=== PATIENT | female | born 1960 | race Caucasian/White ===

== ENCOUNTER 2020-03-23 08:50 | Day surgery (SDC) | payer MEDICAID ==
[2020-03-23] VITALS (14 sets, daily range): BP systolic 101–147; BP diastolic 60–83
[~2020-03-23] VITALS: Ht 154.9 cm; Wt 62.8 kg
[2020-03-23] MEDS ORDERED: albumin 25% 100mL bottle x 1 IV PRN (09:20)
[2020-03-23] MEDS ORDERED: fentaNYL/PF 50MCG/1 ML 2ML syringe ONE (10:15)
[2020-03-23] MEDS ORDERED: midazolam 2 mg/2 ml injection ONE (10:15)
[2020-03-23 10:31] LABS: BASOPHILS # (AUTO) 0.1 X10'3 (0-0.2); BASOPHILS % (AUTO) 0.8 % (0-1); EOSINOPHILS # (AUTO) 0.3 X10'3 (0-0.9); EOSINOPHILS % (AUTO) 3.2 % (0-6); HEMOGLOBIN 13.4 g/dl (12.0-16.0); LYMPHOCYTES # (AUTO) 2.1 X10'3 (1.1-4.8); LYMPHOCYTES % (AUTO) 23.3 % (21-51); MEAN CORPUSCULAR HGB CONC 34.4 g/dL (33.0-36.5); MEAN CORPUSCULAR VOLUME 95.9 FL (78-98); MEAN PLATELET VOLUME 8.6 FL (7.4-10.4); MONOCYTES # (AUTO) 0.9 X10'3 (0-0.9); MONOCYTES % (AUTO) 9.9 % (2-12); NEUTROPHILS # (AUTO) 5.6 X10'3 (1.8-7.7); NEUTROPHILS % (AUTO) 62.8 % (42-75); PLATELET COUNT 268 X10'3 (140-440); RED BLOOD COUNT 4.07 X10'6 (4.20-5.60); RED CELL DISTRIBUTION WIDTH 13.2 % (11.5-14.5); WHITE BLOOD COUNT 8.9 X10'3 (4.5-11.0)
[2020-03-23] MEDS ORDERED: gelatin sponge, absorbable (Gelfoam 12-7MM) sponge TP ONE (11:09)
[2020-03-23] MEDS ORDERED: HYDROcodone/acetaminophen 5mg/325mg tablet PO PRN (11:20)
[2020-03-23] MEDS ORDERED: LEVO25TA2 PO (14:26)
[2020-03-23] MEDS ORDERED: IBUP-1986 PO (14:27)
[2020-03-23] MEDS ORDERED: CYCL-1 PO (14:28)
[2020-03-23] MEDS ORDERED: GABA300C PO (14:29)
== END 2020-03-23 14:45 | disposition home or self-care (01) ==
LOC: SSTAY O 08:50
PROVIDERS: ATTEND Radiology Vascular & Interventional Radiology
DX: R91.8 Other nonspecific abnormal finding of lung field (principal); C34.11 Malignant neoplasm of upper lobe, right bronchus or lung; Z20.828 Contact with and (suspected) exposure to other viral communicable diseases
CPT/HCPCS: 32405; 36415; 71045; 77012; 85025; 87635; 99152; 99153; J2250; J3010

== ENCOUNTER 2020-05-12 05:21 | Inpatient (IN) | payer MEDICAID ==
[2020-05-10 14:50] LABS: CLARITY,URINE CLOUDY (Clear); COLOR,URINE YELLOW (Yellow); GLUCOSE, URINE NEGATIVE (Neg); KETONES,URINE TRACE mg/dl (Neg); LEUKOCYTE ESTERASE ,URINE SMALL (Neg); NITRITES, URINE POSITIVE (Neg); OCCULT BLOOD,URINE NEGATIVE (Neg); PROTEIN,URINE 30 mg/dl (Neg)
[2020-05-10 14:51] LABS: UA COLLECTION TYPE CLN CATCH MIDSTREAM
[2020-05-10 14:59] LABS: SQUAMOUS EPITHELIAL CELL,UR MANY /LPF (FEW)
[2020-05-10 15:00] LABS: BACTERIA,URINE 3+ /HPF (Neg); RBC,URINE 0-2 /HPF (0-2)
[2020-05-10 15:00] LABS: BASOPHILS # (AUTO) 0.1 X10'3 (0-0.2); EOSINOPHILS # (AUTO) 0.2 X10'3 (0-0.9); EOSINOPHILS % (AUTO) 3.6 % (0-6); LYMPHOCYTES # (AUTO) 1.8 X10'3 (1.1-4.8); LYMPHOCYTES % (AUTO) 29.9 % (21-51); MEAN CORPUSCULAR HEMOGLOBIN 33.1 PG (27.0-31.0); MEAN CORPUSCULAR HGB CONC 34.4 g/dL (33.0-36.5); MEAN CORPUSCULAR VOLUME 96.1 FL (78-98); MEAN PLATELET VOLUME 8.9 FL (7.4-10.4); MONOCYTES # (AUTO) 0.5 X10'3 (0-0.9); MONOCYTES % (AUTO) 7.8 % (2-12); NEUTROPHILS # (AUTO) 3.5 X10'3 (1.8-7.7); NEUTROPHILS % (AUTO) 57.7 % (42-75); PRE OP HEMATOCRIT 43.2 % (35.0-45.0); PRE OP HEMOGLOBIN 14.9 g/dL (12.0-16.0); PRE OP PLATELET COUNT 234 X10'3 (140-440); RED CELL DISTRIBUTION WIDTH 14.5 % (11.5-14.5)
[2020-05-10 15:09] LABS: PRE OP PROTIME 10.1 SECONDS (9.0-12.0)
[2020-05-10 15:12] LABS: ALKALINE PHOSPHATASE 67 IU/L (46-116); BLOOD UREA NITROGEN 12 MG/DL (7-18); BUN/CREATININE RATIO 22.2 (6.6-38.0); CALCIUM 9.5 MG/DL (8.5-10.1); CHLORIDE 107 MMOL/L (99-107); CREATININE 0.54 MG/DL (0.40-0.90); PRE OP ALT 23 U/L (30-65); PRE OP ANION GAP 10 (8-16); PRE OP AST 21 U/L (10-37); PRE OP BILIRUB, TOTAL 0.3 MG/DL (0.0-1.0); PRE OP GLUCOSE 114 MG/DL (70-104); PRE OP POTASSIUM 4.1 MMOL/L (3.4-5.1); PRE OP SODIUM 145 MMOL/L (135-145); TOTAL CARBON DIOXIDE 28.3 MMOL/L (24-32); TOTAL PROTEIN 7.9 G/DL (6.4-8.2); eGFR > 90 ML/MIN
[2020-05-12] VITALS (18 sets, daily range): BP systolic 116–186; BP diastolic 55–100
[~2020-05-12] VITALS: Ht 160 cm; Wt 64.3 kg
[~2020-05-12 05:21] MED LIST: IBUP-1986 PO; ringers solution, lacted 1,000 ML IV SCH
[2020-05-12] MEDS ORDERED: ceFAZolin 2gm in dextrose, iso 50 ML IV ONE (05:30)
[2020-05-12] MEDS ORDERED: famotidine 20mg tablet PO ONE (05:30)
[2020-05-12] MEDS ORDERED: BUPIVAcaine/PF 2.5 mg/ml (0.25%) 30ml vial ONE (06:38)
[2020-05-12] MEDS ORDERED: acetaminophen 325mg tablet PO ONE (07:10)
[2020-05-12] MEDS ORDERED: glycopyrrolate 0.2mg/ml inj ONE (12:12)
[2020-05-12] MEDS ORDERED: acetaminophen 1000 MG/100ml vial IV ONE (12:12)
[2020-05-12] MEDS ORDERED: dexamethasone sod phosphate 10mg/ml inj ONE (12:12)
[2020-05-12] MEDS ORDERED: neostigmine methylsulfate 1 MG/ML 10ml vial ONE (12:12)
[2020-05-12] MEDS ORDERED: sevoflurane 250ml liquid IH ONE (12:12)
[2020-05-12] MEDS ORDERED: midazolam 2 mg/2 ml injection ONE (12:17)
[2020-05-12] MEDS ORDERED: fentaNYL /PF 50mcg/ml 5ml ampule ONE ×2 (12:18→13:23)
[2020-05-12] MEDS ORDERED: propofol inj 20 ML IV ONE (12:25)
[2020-05-12] MEDS ORDERED: LIDOcaine 1%/PF 5ML 10 MG/ML VIAL ONE (12:25)
[2020-05-12] MEDS ORDERED: rocuronium 10mg/ml inj IV ONE (13:15)
[2020-05-12] MEDS ORDERED: ondansetron/PF 4mg/2ml inj ONE (13:17)
[2020-05-12] MEDS ORDERED: BUPIVACAINE liposomal/PF 13.3 MG/ML vial IM ONE (13:19)
[2020-05-12] MEDS ORDERED: labetalol 20mg/4ml (5mg/ml) syringe IV ONE (13:31)
[2020-05-12] MEDS ORDERED: morphine 4 MG/ML inj SYRINge IV PRN ×3 (16:00→16:55)
[2020-05-12] MEDS ORDERED: proCHLORperazine 10 MG/2 ml inj IV PRN (16:00)
[2020-05-12] MEDS ORDERED: ringers solution, lacted 1,000 ML IV SCH (16:00)
[2020-05-12] MEDS ORDERED: morphine 2 MG/ML inj. syringe IV PRN (16:00)
[2020-05-12] MEDS ORDERED: ondansetron/PF 4mg/2ml inj IV PRN ×2 (16:00→16:55)
[2020-05-12] MEDS ORDERED: meperidine/PF 25mg/ml syringe IV PRN ×3 (16:00)
[2020-05-12] MEDS ORDERED: pancuronium br 1mg/ml inj IV ONE (16:14)
--- NOTE | 2020-05-12 16:35 | NUR ---
Received from OR via mental health bed, accompanied by Anesthesiologist Lito and report given by Anesthesiolgist. PT DROWSY, PIV LEFT WRIST 20G, R NECK 3 LUMEN CVL, RIGHT CHEST TUBE-LG BORE TO SXN AIR LEAK NOTED WITH BLOOD IN TUBING-5CC IN A[facility], DRSG TO RIGHT CHEST-CDI, F/C IN PLACE, SCDS ON, VSS, DENIES PAIN. Addendum: 05/12/20 at 1718 by Yusra Pugh RN Amended: Links added.
[2020-05-12] MEDS ORDERED: naloxone 0.4 mg/ml inj IV PRN (16:55)
[2020-05-12] MEDS ORDERED: metoclopramide 5 mg/ml inj IV PRN (16:55)
[2020-05-12] MEDS ORDERED: HYDROcodone/acetaminophen 10/325mg tab PO PRN (16:55)
[2020-05-12] MEDS ORDERED: albuterol 2.5 MG/3 ML nebule NEB PRN (16:55)
[2020-05-12] MEDS ORDERED: CADD PCA waste documentation MC PRN (16:55)
[2020-05-12 17:15] LABS: ABG HCO3 21.6 mmol/L (22.0-26.0); ABG OXYGEN SATURATION 99.1 % (94-97); ABG PCO2 (T) 44.9 mmHg (32.0-45.0); ABG PO2 (T) 182.3 mmHg (75.0-100.0); FCOHb 1.5 % (0.0-3.9); FLOW 10 L/min; FMetHb 0.4 % (0.0-1.5); FO2Hb 97.2 % (94-97); PATIENT TEMPERATURE 36.5; TOTAL HEMOGLOBIN 13.5 G/dl (12.0-16.0)
--- NOTE | 2020-05-12 17:35 | NUR ---
ALL CRITERIA FOR TRANSFER TO THE ACCE UNIT HAS BEEN ACHIEVED. REPORT GIVEN TO GINGER FRANCISCO WHO IS AT BEDSIDE AND ALL QUESTIONS ANSWERED, VSS. BED LOW 2 RAILS UP, CALL LIGHT PRESENT AND PATIENT HOOKED UP TO ALL LINES. PATIENTS RN PRESENT TO ACCEPT CARE, PT DENIES PAIN, CT TO SXN-WITH AIR LEAK STILL PRESENT, 1 BAG BELONGINGS TRANSFERRED WITH PT, F/C DRAINING CLEAR YELLOW. Addendum: 05/12/20 at 1805 by Yusra Pugh RN Amended: Links added.
--- NOTE | 2020-05-12 17:50 | NUR ---
Reort received from [place] public health inspector. Pt brought up to room she was alert but still sleepy from her surgery. VSS. No S/S of distress, she denied pain. Art line was Zeroed. CVL to R neck Dressing was loose so re-enforced with tegaderm. R side dressing and tube site were CDI and Chest tube was patent with small air leak. Report given to Sapna FRANCISCO Noc shift.
--- NOTE | 2020-05-12 18:30 | NUR ---
Patient in room MED 313. I have just received report from Lovely FRANCISCO and had the opportunity to ask questions and assume patient care.
[2020-05-12] MEDS: gabapentin 300mg capsule PO SCH (20:23)
[2020-05-12] MEDS: HYDROmorphone 1 mg/ml syringe IV PRN (22:21)
[2020-05-12] MEDS: ceFAZolin/D5W- 1GM premix 50 ML IV SCH (23:58)
[2020-05-13] VITALS (8 sets, daily range): BP systolic 86–110; BP diastolic 45–69
[2020-05-13] MEDS: HYDROmorphone 1 mg/ml syringe IV PRN ×5 (02:24→23:56)
[2020-05-13] MEDS: potassium Cl 20mEq in D5-NS 1,000 ML IV SCH ×3 (05:25→19:18)
--- NOTE | 2020-05-13 06:33 | NUR ---
Problems reprioritized. Patient report given, questions answered & plan of care reviewed with CAESAR FRANCISCO.
[2020-05-13 06:48] LABS: BASOPHILS % (AUTO) 0.2 % (0-1); EOSINOPHILS % (AUTO) 0.2 % (0-6); HEMATOCRIT 35.3 % (35.0-45.0); LYMPHOCYTES # (AUTO) 1.5 X10'3 (1.1-4.8); LYMPHOCYTES % (AUTO) 14.9 % (21-51); MEAN CORPUSCULAR HEMOGLOBIN 32.9 PG (27.0-31.0); MEAN CORPUSCULAR HGB CONC 34.1 g/dL (33.0-36.5); MEAN CORPUSCULAR VOLUME 96.5 FL (78-98); MEAN PLATELET VOLUME 9.1 FL (7.4-10.4); MONOCYTES # (AUTO) 0.8 X10'3 (0-0.9); MONOCYTES % (AUTO) 7.9 % (2-12); NEUTROPHILS # (AUTO) 7.7 X10'3 (1.8-7.7); NEUTROPHILS % (AUTO) 76.8 % (42-75); PLATELET COUNT 185 X10'3 (140-440); RED BLOOD COUNT 3.65 X10'6 (4.20-5.60); RED CELL DISTRIBUTION WIDTH 14.2 % (11.5-14.5)
--- NOTE | 2020-05-13 06:56 | NUR ---
Patient in room MED 313. I have received report from MARYAM Alejo and had the opportunity to ask questions and assume patient care.
[2020-05-13 07:47] LABS: ALANINE AMINOTRANSFERASE 20 U/L (12-78); ALKALINE PHOSPHATASE 50 IU/L (46-116); ANION GAP 7 (8-16); ASPARTATE AMINO TRANSFERASE 24 U/L (10-37); BILIRUBIN,TOTAL 0.9 MG/DL (0.1-1.0); BLOOD UREA NITROGEN 11 MG/DL (7-18); BUN/CREATININE RATIO 21.2 (6.6-38.0); CALCIUM 8.1 MG/DL (8.5-10.1); CHLORIDE 104 MMOL/L (99-107); CREATININE 0.52 MG/DL (0.40-0.90); GLUCOSE 112 MG/DL (70-104); MAGNESIUM 1.6 MG/DL (1.5-2.4); POTASSIUM 3.6 MMOL/L (3.5-5.1); SODIUM 138 MMOL/L (135-145); TOTAL PROTEIN 6.1 G/DL (6.4-8.2); eGFR > 90 ML/MIN
[2020-05-13] MEDS: gabapentin 300mg capsule PO SCH ×2 (07:49→19:17)
[2020-05-13] MEDS: ceFAZolin/D5W- 1GM premix 50 ML IV SCH (07:50)
--- NOTE | 2020-05-13 18:49 | NUR ---
central line d/c per MD orders
--- NOTE | 2020-05-13 18:51 | NUR ---
Problems reprioritized. Patient report given, questions answered & plan of care reviewed with MARYAM William.
--- NOTE | 2020-05-13 18:55 | NUR ---
Patient in room MED 313. I have received report from Claudia, and had the opportunity to ask questions and assume patient care.
[2020-05-14] MEDS: HYDROcodone/acetaminophen 10/325mg tab PO PRN (03:32)
[2020-05-14 03:45] VITALS: BP 107/50
--- NOTE | 2020-05-14 06:44 | NUR ---
Problems reprioritized. Patient report given, questions answered & plan of care reviewed with Vadim.
[2020-05-14 07:00] VITALS: BP 83/59
[2020-05-14] MEDS: ketorolac trometh. 30mg/ml inj. IV PRN ×3 (10:17→22:26)
[2020-05-14] MEDS: HYDROmorphone 1 mg/ml syringe IV PRN ×3 (10:18→20:42)
[2020-05-14 11:00] VITALS: BP 89/68
[2020-05-14] MEDS: potassium Cl 20mEq in D5-NS 1,000 ML IV SCH (12:01)
[2020-05-14] MEDS ORDERED: gabapentin 300mg capsule PO ONE (12:15)
[2020-05-14] MEDS: gabapentin 300mg capsule PO SCH (13:41)
[2020-05-14 15:00] VITALS: BP 109/54
[2020-05-14 19:00] VITALS: BP 117/55
[2020-05-14] MEDS ORDERED: mag hydrox/Alum hydrox/simeth 30ml oral suspension PO ONE (22:20)
[2020-05-15] MEDS: HYDROcodone/acetaminophen 10/325mg tab PO PRN ×4 (01:51→19:30)
[2020-05-15 06:00] VITALS: BP 132/74
--- NOTE | 2020-05-15 06:31 | NUR ---
Patient in room MED 313. I have received report from grabiel azar and had the opportunity to ask questions and assume patient care.
--- NOTE | 2020-05-15 06:39 | NUR ---
Problems reprioritized. Patient report given, questions answered & plan of care reviewed with RACHELE. Addendum: 05/15/20 at 0640 by Feliberto Metz RN Amended: Links added.
[2020-05-15 08:32] LABS: BASOPHILS % (AUTO) 0.4 % (0-1); EOSINOPHILS # (AUTO) 0.3 X10'3 (0-0.9); EOSINOPHILS % (AUTO) 4.3 % (0-6); HEMATOCRIT 34.2 % (35.0-45.0); HEMOGLOBIN 11.7 g/dl (12.0-16.0); LYMPHOCYTES # (AUTO) 1.6 X10'3 (1.1-4.8); LYMPHOCYTES % (AUTO) 24.2 % (21-51); MEAN CORPUSCULAR HEMOGLOBIN 33.5 PG (27.0-31.0); MEAN CORPUSCULAR HGB CONC 34.2 g/dL (33.0-36.5); MEAN CORPUSCULAR VOLUME 97.8 FL (78-98); MEAN PLATELET VOLUME 9.4 FL (7.4-10.4); MONOCYTES # (AUTO) 0.6 X10'3 (0-0.9); MONOCYTES % (AUTO) 9.1 % (2-12); NEUTROPHILS # (AUTO) 4.2 X10'3 (1.8-7.7); PLATELET COUNT 165 X10'3 (140-440); RED CELL DISTRIBUTION WIDTH 13.8 % (11.5-14.5); WHITE BLOOD COUNT 6.7 X10'3 (4.5-11.0)
[2020-05-15 08:48] LABS: ALANINE AMINOTRANSFERASE 16 U/L (12-78); ALBUMIN 2.6 G/DL (3.4-5.0); ALBUMIN/GLOBULIN RATIO 0.8 (1.1-1.5); ALKALINE PHOSPHATASE 47 IU/L (46-116); ANION GAP 5 (8-16); ASPARTATE AMINO TRANSFERASE 21 U/L (10-37); BILIRUBIN,TOTAL 0.5 MG/DL (0.1-1.0); BLOOD UREA NITROGEN 10 MG/DL (7-18); BUN/CREATININE RATIO 20.4 (6.6-38.0); CALCIUM 8.7 MG/DL (8.5-10.1); CHLORIDE 106 MMOL/L (99-107); CREATININE 0.49 MG/DL (0.40-0.90); GLUCOSE 108 MG/DL (70-104); POTASSIUM 4.1 MMOL/L (3.5-5.1); SODIUM 138 MMOL/L (135-145); TOTAL CARBON DIOXIDE 27.4 MMOL/L (24-32); eGFR > 90 ML/MIN
[2020-05-15] MEDS: ketorolac trometh. 30mg/ml inj. IV PRN ×2 (10:28→22:02)
[2020-05-15 11:00] VITALS: BP 114/53
[2020-05-15 15:00] VITALS: BP 124/55
--- NOTE | 2020-05-15 17:00 | NUR ---
pt aware small pneumothorax per CXR ,pt up out of bed ,removing moniters and sao2 probe, refusing IS, reconnected to moniters, pt aware need to call with any SOB, cont to moniter closely, orders in to repeat CXR in am
[2020-05-15 18:00] VITALS: BP 137/67
--- NOTE | 2020-05-15 18:40 | NUR ---
Problems reprioritized. Patient report given, questions answered & plan of care reviewed with MARYAM FUENTES.
--- NOTE | 2020-05-15 18:44 | NUR ---
Patient in room MED 313. I have received report from Génesis FRANCISCO and had the opportunity to ask questions and assume patient care.
[2020-05-15 22:00] VITALS: BP 117/60
[2020-05-16] MEDS: HYDROcodone/acetaminophen 10/325mg tab PO PRN ×4 (01:04→19:44)
[2020-05-16 02:00] VITALS: BP 131/65
[2020-05-16] MEDS: ketorolac trometh. 30mg/ml inj. IV PRN (03:46)
[2020-05-16 06:00] VITALS: BP 147/72
[2020-05-16 06:02] LABS: BASOPHILS % (AUTO) 0.7 % (0-1); EOSINOPHILS # (AUTO) 0.3 X10'3 (0-0.9); EOSINOPHILS % (AUTO) 5.4 % (0-6); HEMATOCRIT 34.1 % (35.0-45.0); HEMOGLOBIN 11.7 g/dl (12.0-16.0); LYMPHOCYTES # (AUTO) 1.7 X10'3 (1.1-4.8); LYMPHOCYTES % (AUTO) 30.4 % (21-51); MEAN CORPUSCULAR HEMOGLOBIN 33.9 PG (27.0-31.0); MEAN CORPUSCULAR HGB CONC 34.3 g/dL (33.0-36.5); MEAN CORPUSCULAR VOLUME 98.8 FL (78-98); MEAN PLATELET VOLUME 9.1 FL (7.4-10.4); MONOCYTES # (AUTO) 0.6 X10'3 (0-0.9); MONOCYTES % (AUTO) 11.5 % (2-12); NEUTROPHILS # (AUTO) 2.8 X10'3 (1.8-7.7); PLATELET COUNT 170 X10'3 (140-440); RED BLOOD COUNT 3.45 X10'6 (4.20-5.60); RED CELL DISTRIBUTION WIDTH 13.8 % (11.5-14.5); WHITE BLOOD COUNT 5.4 X10'3 (4.5-11.0)
[2020-05-16 06:14] LABS: ALANINE AMINOTRANSFERASE 20 U/L (12-78); ALBUMIN 2.6 G/DL (3.4-5.0); ALBUMIN/GLOBULIN RATIO 0.7 (1.1-1.5); ALKALINE PHOSPHATASE 45 IU/L (46-116); ANION GAP 4 (8-16); ASPARTATE AMINO TRANSFERASE 18 U/L (10-37); BILIRUBIN,TOTAL 0.4 MG/DL (0.1-1.0); BLOOD UREA NITROGEN 12 MG/DL (7-18); BUN/CREATININE RATIO 19.7 (6.6-38.0); CALCIUM 8.7 MG/DL (8.5-10.1); CHLORIDE 107 MMOL/L (99-107); CREATININE 0.61 MG/DL (0.40-0.90); GLUCOSE 104 MG/DL (70-104); MAGNESIUM 1.9 MG/DL (1.5-2.4); POTASSIUM 4.4 MMOL/L (3.5-5.1); SODIUM 139 MMOL/L (135-145); TOTAL CARBON DIOXIDE 28.1 MMOL/L (24-32); TOTAL PROTEIN 6.1 G/DL (6.4-8.2); eGFR > 90 ML/MIN
--- NOTE | 2020-05-16 06:30 | NUR ---
Patient in room MED 313. I have received report from Lynne FRANCISCO and had the opportunity to ask questions and assume patient care.
--- NOTE | 2020-05-16 06:38 | NUR ---
Problems reprioritized. Patient report given, questions answered & plan of care reviewed with Lovely FRANCISCO.
[2020-05-16 11:00] VITALS: BP 154/90
[2020-05-16] MEDS: HYDROmorphone 1 mg/ml syringe IV PRN ×2 (11:09→23:26)
[2020-05-16 15:00] VITALS: BP 132/88
[2020-05-16] MEDS ORDERED: ipratropium/albuterol 3ml nebule NEB PRN (18:00)
--- NOTE | 2020-05-16 18:00 | NUR ---
Patient in room PCU 3028. I have received report from ACCE MARYAM MILES and had the opportunity to ask questions and assume patient care.
[2020-05-16] MEDS: CefTRIAXone/D5W-Rocephin 1gm 50 ML IV SCH (19:54)
[2020-05-16] MEDS ORDERED: magnesium hydroxide 30ml (MOM) UD suspension PO ONE (20:55)
[2020-05-17 02:00] VITALS: BP 132/56
[2020-05-17] MEDS: HYDROcodone/acetaminophen 10/325mg tab PO PRN (03:32)
[2020-05-17] MEDS: HYDROmorphone 1 mg/ml syringe IV PRN ×2 (05:09→09:09)
[2020-05-17 06:20] LABS: BASOPHILS % (AUTO) 0.8 % (0-1); EOSINOPHILS # (AUTO) 0.3 X10'3 (0-0.9); EOSINOPHILS % (AUTO) 5.5 % (0-6); HEMATOCRIT 32.9 % (35.0-45.0); HEMOGLOBIN 11.2 g/dl (12.0-16.0); LYMPHOCYTES # (AUTO) 1.2 X10'3 (1.1-4.8); LYMPHOCYTES % (AUTO) 21.5 % (21-51); MEAN CORPUSCULAR HEMOGLOBIN 32.8 PG (27.0-31.0); MEAN CORPUSCULAR HGB CONC 34.1 g/dL (33.0-36.5); MEAN CORPUSCULAR VOLUME 96.4 FL (78-98); MEAN PLATELET VOLUME 9.3 FL (7.4-10.4); MONOCYTES # (AUTO) 0.8 X10'3 (0-0.9); MONOCYTES % (AUTO) 14.9 % (2-12); NEUTROPHILS # (AUTO) 3.1 X10'3 (1.8-7.7); NEUTROPHILS % (AUTO) 57.3 % (42-75); PLATELET COUNT 201 X10'3 (140-440); RED BLOOD COUNT 3.41 X10'6 (4.20-5.60); RED CELL DISTRIBUTION WIDTH 13.7 % (11.5-14.5); WHITE BLOOD COUNT 5.4 X10'3 (4.5-11.0)
--- NOTE | 2020-05-17 06:34 | NUR ---
Problems reprioritized. Patient report given, questions answered & plan of care reviewed with Lovely FRANCISCO.
[2020-05-17] MEDS: ketorolac trometh. 30mg/ml inj. IV PRN ×2 (06:36→12:33)
--- NOTE | 2020-05-17 06:44 | NUR ---
Patient in room PCU 3028. I have received report from Kelly FRANCISCO and had the opportunity to ask questions and assume patient care.
[2020-05-17 06:50] LABS: ALANINE AMINOTRANSFERASE 20 U/L (12-78); ALBUMIN 2.6 G/DL (3.4-5.0); ALBUMIN/GLOBULIN RATIO 0.8 (1.1-1.5); ALKALINE PHOSPHATASE 50 IU/L (46-116); ANION GAP 7 (8-16); ASPARTATE AMINO TRANSFERASE 22 U/L (10-37); BILIRUBIN,TOTAL 0.3 MG/DL (0.1-1.0); BLOOD UREA NITROGEN 9 MG/DL (7-18); BUN/CREATININE RATIO 20.5 (6.6-38.0); CALCIUM 9.9 MG/DL (8.5-10.1); CHLORIDE 104 MMOL/L (99-107); CREATININE 0.44 MG/DL (0.40-0.90); GLUCOSE 103 MG/DL (70-104); MAGNESIUM 2.2 MG/DL (1.5-2.4); POTASSIUM 3.7 MMOL/L (3.5-5.1); SODIUM 139 MMOL/L (135-145); TOTAL CARBON DIOXIDE 28.3 MMOL/L (24-32); eGFR > 90 ML/MIN
[2020-05-17 07:00] VITALS: BP 129/68
[2020-05-17] MEDS: CefTRIAXone/D5W-Rocephin 1gm 50 ML IV SCH (08:23)
--- NOTE | 2020-05-17 10:30 | NUR ---
PAGER ID: [phone] MESSAGE: PT BETZAIDA GILLIS [phone] B IS DRESSED AND HOPING TO DISCHARGE NAHED IF POSSIBLE, SHE THINKS SHE'S GOING HOME THIS AM? GINGER DOMINGUEZ Pt Betzaida Gillis is refusing tele as well. Thanks, Ginger DOMINGUEZ
[2020-05-17 11:00] VITALS: BP 142/58
[2020-05-17] MEDS ORDERED: levoTHYROXINE 25mcg tablet PO SCH (13:25)
[2020-05-17] MEDS ORDERED: LEVO25TA7 PO (13:26)
[2020-05-17] MEDS ORDERED: CEFD300C3 PO (13:26)
[2020-05-17] MEDS ORDERED: ALBU8.5H8 INH (13:27)
--- NOTE | 2020-05-17 14:35 | NUR ---
Pt stable for discharge per MD order, all discharge instructions reviewed with patient and all questions answered. PIV discontinued, cannula intact. Telemetry discontinued, radio television technical director notified. New prescriptions faxed to pharmacy. All belongings collected and sent with patient. Patient picked up in private vehicle by family members and wheeled to lobby by staff.
[2020-05-18] MEDS ORDERED: LEVO25TA7 PO (00:07)
[2020-05-18] MEDS ORDERED: CEFD300C3 PO (00:07)
== END 2020-05-17 15:31 | disposition home or self-care (01) | DRG 120 ==
LOC: PAS IN 05:21 → UNDOADMIN 05:21 → EDSTATUS 12:00 → PAS IN 16:51 → MED 3N 17:45 → PCU 3S 05-16 15:10
PROVIDERS: ADMIT Surgery; ATTEND Surgery
PROC: 8E0W4CZ Robotic Assisted Procedure of Trunk Region, Percutaneous Endoscopic Approach (ICD-10-PCS; 2020-05-12)
PROC: 0W9930Z Drainage of Right Pleural Cavity with Drainage Device, Percutaneous Approach (ICD-10-PCS; 2020-05-12)
PROC: 0BJ08ZZ Inspection of Tracheobronchial Tree, Via Natural or Artificial Opening Endoscopic (ICD-10-PCS; 2020-05-12)
PROC: 0BTC4ZZ Resection of Right Upper Lung Lobe, Percutaneous Endoscopic Approach (ICD-10-PCS; principal; 2020-05-12 12:12)
DX: C34.11 Malignant neoplasm of upper lobe, right bronchus or lung (principal); J93.9 Pneumothorax, unspecified; E03.9 Hypothyroidism, unspecified; N39.0 Urinary tract infection, site not specified; Z85.118 Personal history of other malignant neoplasm of bronchus and lung; Z87.891 Personal history of nicotine dependence; Z90.49 Acquired absence of other specified parts of digestive tract; Z98.1 Arthrodesis status; Z20.828 Contact with and (suspected) exposure to other viral communicable diseases
CPT/HCPCS: 36415; 36600; 71045; 71046; 80053; 81001; 82803; 82948; 83735; 84443; 85018; 85025; 85610; 85730; 86870; 86885; 86900; 86901; 86902; 86905; 86920; 86922; 87081; 87635; 93005; 97110; 97116; 97161; 97530; A4618; A6258; A6449; A7000; A7048; C9290; G0378; J0131; J0690; J0696; J1100; J1170; J1885; J2250; J2270; J2405; J2704; J2710; J3010; J3480; J3490; J7040; J7120

== ENCOUNTER 2020-05-17 21:26 | Inpatient (IN) | payer MEDICAID ==
[~2020-05-17] VITALS: Ht 160 cm; Wt 74.1 kg
[~2020-05-17 21:26] MED LIST changes: +ALBU8.5H8 INH; +CEFD300C3 PO; +LEVO25TA7 PO; -ringers solution, lacted 1,000 ML IV SCH
[2020-05-17 22:02] LABS: BASOPHILS % (AUTO) 0.7 % (0-1); EOSINOPHILS # (AUTO) 0.3 X10'3 (0-0.9); HEMATOCRIT 40.2 % (35.0-45.0); HEMOGLOBIN 13.5 g/dl (12.0-16.0); LYMPHOCYTES # (AUTO) 1.1 X10'3 (1.1-4.8); LYMPHOCYTES % (AUTO) 16.8 % (21-51); MEAN CORPUSCULAR HEMOGLOBIN 32.5 PG (27.0-31.0); MEAN CORPUSCULAR HGB CONC 33.6 g/dL (33.0-36.5); MEAN CORPUSCULAR VOLUME 96.8 FL (78-98); MEAN PLATELET VOLUME 8.9 FL (7.4-10.4); MONOCYTES # (AUTO) 0.8 X10'3 (0-0.9); MONOCYTES % (AUTO) 12.6 % (2-12); NEUTROPHILS # (AUTO) 4.2 X10'3 (1.8-7.7); NEUTROPHILS % (AUTO) 64.9 % (42-75); PLATELET COUNT 253 X10'3 (140-440); RED BLOOD COUNT 4.16 X10'6 (4.20-5.60); RED CELL DISTRIBUTION WIDTH 13.4 % (11.5-14.5); WHITE BLOOD COUNT 6.5 X10'3 (4.5-11.0)
[2020-05-17 22:13] LABS: ALANINE AMINOTRANSFERASE 27 U/L (12-78); ALBUMIN 3.7 G/DL (3.4-5.0); ALBUMIN/GLOBULIN RATIO 0.9 (1.1-1.5); ALKALINE PHOSPHATASE 71 IU/L (46-116); ANION GAP 9 (8-16); ASPARTATE AMINO TRANSFERASE 33 U/L (10-37); BILIRUBIN,TOTAL 0.5 MG/DL (0.1-1.0); BLOOD UREA NITROGEN 8 MG/DL (7-18); CALCIUM 9.9 MG/DL (8.5-10.1); CHLORIDE 103 MMOL/L (99-107); GLUCOSE 106 MG/DL (70-104); POTASSIUM 4.1 MMOL/L (3.5-5.1); SODIUM 139 MMOL/L (135-145); TOTAL CARBON DIOXIDE 26.6 MMOL/L (24-32); eGFR > 90 ML/MIN
[2020-05-17] MEDS ORDERED: ondansetron/PF 4mg/2ml inj IV ONE (22:25)
[2020-05-17] MEDS ORDERED: iohexol 300mg/ml 100ml inj. ONE (22:31)
[2020-05-17] MEDS ORDERED: morphine 4 MG/ML inj SYRINge IV ONE (23:00)
[2020-05-17] MEDS ORDERED: morphine 10mg/ml inj. IV ONE (23:05)
[2020-05-18] MEDS ORDERED: LEVO25TA7 PO (00:07)
[2020-05-18] MEDS ORDERED: CEFD300C3 PO (00:07)
[2020-05-18] MEDS ORDERED: ondansetron/PF 4mg/2ml inj IV PRN (01:15)
[2020-05-18] MEDS ORDERED: mag hydrox/Alum hydrox/simeth 30ml oral suspension PO PRN (01:15)
[2020-05-18] MEDS ORDERED: magnesium Cl slow-release 64mg tablet PO PRN (01:15)
[2020-05-18] MEDS ORDERED: metoclopramide 5 mg/ml inj IV PRN (01:15)
[2020-05-18] MEDS ORDERED: potassium Cl 20 mEq SR tablet PO PRN (01:15)
[2020-05-18] MEDS ORDERED: magnesium hydroxide 30ml (MOM) UD suspension PO PRN ×2 (01:15→01:20)
[2020-05-18] MEDS ORDERED: acetaminophen 325mg tablet PO PRN ×2 (01:15)
[2020-05-18] MEDS ORDERED: morphine 2 MG/ML inj. syringe IV PRN ×2 (01:15)
[2020-05-18] MEDS ORDERED: magnesium 4gm in 100ml NS 100 ML IV PRN (01:15)
[2020-05-18] MEDS ORDERED: potassium Cl 40MEQ/1/2NS 520ml 520 ML IV PRN ×2 (01:15)
[2020-05-18] MEDS ORDERED: HYDROcodone/acetaminophen 5mg/325mg tablet PO PRN (01:15)
[2020-05-18] MEDS ORDERED: acetaminophen 650mg rectal suppository RC PRN (01:15)
[2020-05-18] MEDS ORDERED: bisacodyl 10mg suppository rectal RC PRN (01:15)
[2020-05-18] MEDS ORDERED: magnesium 2GM in 50ml NS 50 ML IV PRN (01:15)
[2020-05-18] MEDS: HYDROcodone/acetaminophen 10/325mg tab PO PRN ×3 (02:34→20:24)
[2020-05-18] MEDS: normal saline 1000ml 1,000 ML IV SCH ×3 (02:34→20:20)
[2020-05-18] MEDS ORDERED: HYDROmorphone inj. 0.5 MG/0.5 ML DISP.SYRIN IV PRN ×2 (05:45→12:25)
[2020-05-18] MEDS: HYDROmorphone 1 mg/ml syringe IV PRN ×3 (05:55→22:22)
[2020-05-18] MEDS: cefdinir 300mg capsule PO SCH ×2 (08:00→20:00)
[2020-05-18] MEDS: K and/or MAG REPLACEMENT MC SCH ×2 (08:00→20:00)
[2020-05-18] MEDS: levoTHYROXINE 25mcg tablet PO SCH (08:21)
[2020-05-18] MEDS: famotidine 20mg tablet PO SCH ×2 (08:21→20:19)
--- NOTE | 2020-05-18 08:26 | NUR ---
Pt belongings: jacket, pants, undies, bra, sneakers. Cell phone, (no boiler washer).
--- NOTE | 2020-05-18 08:30 | NUR ---
Verified status of pt's home abx availability with Rah Wooten Tech. Not here nor available. Priyanka to communicate need for MedSurg RN assuming care to contact Hospitalist for substitute med if s/he determines it is to be continued.
--- NOTE | 2020-05-18 08:35 | NUR ---
Patient in room ED 10. I have received report from MARYAM Hall and had the opportunity to ask questions and assume patient care.
[2020-05-18] MEDS: docusate sodium 100mg/10ml UD cup PO SCH ×2 (09:09→20:19)
[2020-05-18 09:40] VITALS: BP 166/68
[2020-05-18 12:00] VITALS: BP_SYST 119; BP_SYST 149; BP_DIAS 71; BP_DIAS 78
[2020-05-18] MEDS ORDERED: sincalide inj 1.5 MCG in normal saline 50ml IV soln 50 ML IV PRN (12:20)
[2020-05-18] MEDS ORDERED: magnesium citrate 296ml oral solution PO ONE (12:25)
[2020-05-18] MEDS ORDERED: ketorolac trometh. 30mg/ml inj. IV ONE (12:40)
[2020-05-18 13:43] VITALS: BP 154/86
--- NOTE | 2020-05-18 14:06 | NUR ---
received report from IR by Ernst. Chest tube was placed to right upper chest, atrium suction 20.
[2020-05-18] MEDS ORDERED: SINCALIDE IV PRN (14:50)
[2020-05-18] MEDS ORDERED: NORMAL SALINE IV PRN (14:50)
--- NOTE | 2020-05-18 15:16 | NUR ---
Patient doing well in nuclear med, awake and taken to the bathroom. waiting to transport back to surgical floor.
--- NOTE | 2020-05-18 17:10 | NUR ---
Pt back to floor from procedure around 1600. Pain med given. Chest tube connected to suction. V/S 112/82, 72 o2sat 98% R/A.
--- NOTE | 2020-05-18 18:28 | NUR ---
Patient in room ANGEL 345B. I have received report from MARYAM Pearson and had the opportunity to ask questions and assume patient care. Patient sitting up in bed, finishing up meal.
[2020-05-18 18:30] VITALS: BP 141/59
--- NOTE | 2020-05-18 18:37 | NUR ---
Problems reprioritized. Patient report given, questions answered & plan of care reviewed with MARYAM Salinas.
[2020-05-18] MEDS ORDERED: temazepam 15mg capsule PO PRN (21:00)
[2020-05-19] VITALS: BP 140/65
[2020-05-19] MEDS: HYDROcodone/acetaminophen 10/325mg tab PO PRN ×5 (01:00→23:40)
[2020-05-19] MEDS: HYDROmorphone 1 mg/ml syringe IV PRN ×5 (02:35→21:06)
--- NOTE | 2020-05-19 06:46 | NUR ---
Problems reprioritized. Patient report given, questions answered & plan of care reviewed with MARYAM Wall.
[2020-05-19] MEDS: docusate sodium 100mg/10ml UD cup PO SCH ×2 (07:23→19:40)
[2020-05-19] MEDS: famotidine 20mg tablet PO SCH ×2 (07:23→19:41)
[2020-05-19] MEDS: levoTHYROXINE 25mcg tablet PO SCH (07:23)
[2020-05-19 07:29] LABS: BASOPHILS # (AUTO) 0.1 X10'3 (0-0.2); BASOPHILS % (AUTO) 1.1 % (0-1); EOSINOPHILS # (AUTO) 0.4 X10'3 (0-0.9); HEMATOCRIT 32.9 % (35.0-45.0); HEMOGLOBIN 11.4 g/dl (12.0-16.0); LYMPHOCYTES # (AUTO) 1.3 X10'3 (1.1-4.8); LYMPHOCYTES % (AUTO) 23.1 % (21-51); MEAN CORPUSCULAR HEMOGLOBIN 33.6 PG (27.0-31.0); MEAN CORPUSCULAR HGB CONC 34.5 g/dL (33.0-36.5); MEAN CORPUSCULAR VOLUME 97.2 FL (78-98); MEAN PLATELET VOLUME 9.1 FL (7.4-10.4); MONOCYTES # (AUTO) 0.9 X10'3 (0-0.9); NEUTROPHILS % (AUTO) 52.8 % (42-75); PLATELET COUNT 239 X10'3 (140-440); RED BLOOD COUNT 3.38 X10'6 (4.20-5.60); RED CELL DISTRIBUTION WIDTH 13.5 % (11.5-14.5); WHITE BLOOD COUNT 5.8 X10'3 (4.5-11.0)
[2020-05-19 07:36] LABS: PARTIAL THROMBOPLASTIN TIME 27 SECONDS (22-32)
[2020-05-19 08:00] VITALS: BP 147/62
[2020-05-19 08:00] LABS: ALANINE AMINOTRANSFERASE 21 U/L (12-78); ALBUMIN 2.5 G/DL (3.4-5.0); ALBUMIN/GLOBULIN RATIO 0.8 (1.1-1.5); ALKALINE PHOSPHATASE 51 IU/L (46-116); ANION GAP 8 (8-16); ASPARTATE AMINO TRANSFERASE 20 U/L (10-37); BILIRUBIN,TOTAL 0.5 MG/DL (0.1-1.0); BLOOD UREA NITROGEN 8 MG/DL (7-18); BUN/CREATININE RATIO 16.3 (6.6-38.0); CALCIUM 8.2 MG/DL (8.5-10.1); CHLORIDE 107 MMOL/L (99-107); CREATININE 0.49 MG/DL (0.40-0.90); GLUCOSE 108 MG/DL (70-104); MAGNESIUM 2.2 MG/DL (1.5-2.4); POTASSIUM 3.3 MMOL/L (3.5-5.1); SODIUM 140 MMOL/L (135-145); TOTAL CARBON DIOXIDE 24.7 MMOL/L (24-32); TOTAL PROTEIN 5.6 G/DL (6.4-8.2); eGFR > 90 ML/MIN
[2020-05-19] MEDS: cefdinir 300mg capsule PO SCH ×2 (08:00→20:00)
[2020-05-19] MEDS: K and/or MAG REPLACEMENT MC SCH ×2 (08:00→20:00)
[2020-05-19] MEDS: potassium Cl 20 mEq SR tablet PO PRN ×2 (09:15→19:40)
[2020-05-19 11:00] VITALS: BP 116/58
[2020-05-19] MEDS: normal saline 1000ml 1,000 ML IV SCH ×2 (11:45→21:11)
[2020-05-19] MEDS ORDERED: magnesium hydroxide 30ml (MOM) UD suspension PO PRN (15:50)
[2020-05-19] MEDS ORDERED: ipratropium/albuterol 3ml nebule NEB PRN ×2 (15:50→17:30)
--- NOTE | 2020-05-19 16:32 | NUR ---
New orders for Treatments for RT & Tx. page sent for new orders to RT.
--- NOTE | 2020-05-19 18:00 | NUR ---
Patient in room ANGEL 345. I have received report from Mae FRANCISCO and had the opportunity to ask questions and assume patient care.
--- NOTE | 2020-05-19 18:31 | NUR ---
Problems reprioritized. Patient report given, questions answered & plan of care reviewed with Edelmira FRANCISCO.
[2020-05-19 19:00] VITALS: BP 136/67
[2020-05-20] VITALS: BP 162/57
[2020-05-20] MEDS: HYDROmorphone 1 mg/ml syringe IV PRN ×5 (01:03→21:08)
[2020-05-20] MEDS: HYDROcodone/acetaminophen 10/325mg tab PO PRN ×4 (03:49→23:44)
[2020-05-20 06:14] LABS: BASOPHILS # (AUTO) 0.1 X10'3 (0-0.2); EOSINOPHILS # (AUTO) 0.4 X10'3 (0-0.9); EOSINOPHILS % (AUTO) 6.2 % (0-6); HEMATOCRIT 32.8 % (35.0-45.0); HEMOGLOBIN 11.1 g/dl (12.0-16.0); LYMPHOCYTES # (AUTO) 1.1 X10'3 (1.1-4.8); LYMPHOCYTES % (AUTO) 19.5 % (21-51); MEAN CORPUSCULAR HGB CONC 33.9 g/dL (33.0-36.5); MEAN CORPUSCULAR VOLUME 97.4 FL (78-98); MEAN PLATELET VOLUME 9.3 FL (7.4-10.4); MONOCYTES # (AUTO) 0.9 X10'3 (0-0.9); MONOCYTES % (AUTO) 16.4 % (2-12); NEUTROPHILS # (AUTO) 3.2 X10'3 (1.8-7.7); NEUTROPHILS % (AUTO) 56.9 % (42-75); PLATELET COUNT 271 X10'3 (140-440); RED BLOOD COUNT 3.37 X10'6 (4.20-5.60); RED CELL DISTRIBUTION WIDTH 13.5 % (11.5-14.5); WHITE BLOOD COUNT 5.7 X10'3 (4.5-11.0)
[2020-05-20 06:23] LABS: PARTIAL THROMBOPLASTIN TIME 25 SECONDS (22-32)
--- NOTE | 2020-05-20 06:25 | NUR ---
Problems reprioritized. Patient report given, questions answered & plan of care reviewed with January FRANCISCO.
--- NOTE | 2020-05-20 06:35 | NUR ---
Patient in room ANGEL 345. I have received report from MARYAM Hickey and had the opportunity to ask questions and assume patient care.
[2020-05-20 06:42] LABS: ALANINE AMINOTRANSFERASE 20 U/L (12-78); ALBUMIN 2.6 G/DL (3.4-5.0); ALBUMIN/GLOBULIN RATIO 0.8 (1.1-1.5); ALKALINE PHOSPHATASE 51 IU/L (46-116); ANION GAP 7 (8-16); ASPARTATE AMINO TRANSFERASE 20 U/L (10-37); BILIRUBIN,TOTAL 0.3 MG/DL (0.1-1.0); BLOOD UREA NITROGEN 6 MG/DL (7-18); BUN/CREATININE RATIO 13.6 (6.6-38.0); CALCIUM 8.3 MG/DL (8.5-10.1); CHLORIDE 108 MMOL/L (99-107); CREATININE 0.44 MG/DL (0.40-0.90); GLUCOSE 104 MG/DL (70-104); MAGNESIUM 2.1 MG/DL (1.5-2.4); POTASSIUM 4.2 MMOL/L (3.5-5.1); SODIUM 138 MMOL/L (135-145); TOTAL CARBON DIOXIDE 22.9 MMOL/L (24-32); TOTAL PROTEIN 5.8 G/DL (6.4-8.2); eGFR > 90 ML/MIN
[2020-05-20 07:00] VITALS: BP 113/59
[2020-05-20] MEDS: K and/or MAG REPLACEMENT MC SCH ×2 (07:52→20:00)
[2020-05-20] MEDS: docusate sodium 100mg/10ml UD cup PO SCH (07:55)
[2020-05-20] MEDS: famotidine 20mg tablet PO SCH (07:55)
[2020-05-20] MEDS: levoTHYROXINE 25mcg tablet PO SCH (07:55)
[2020-05-20] MEDS: normal saline 1000ml 1,000 ML IV SCH ×2 (07:56→19:31)
[2020-05-20] MEDS: cefdinir 300mg capsule PO SCH ×2 (08:00→20:00)
[2020-05-20 11:00] VITALS: BP 150/61
--- NOTE | 2020-05-20 12:12 | NUR ---
Malnutrition consult. Noted two nursing screens completed one at 16:13 with pt report of 34 lbs or more wt loss and another at 16:14 with no reported weight loss or loss of appetite. Eating 50% of regular diet. No recent wt loss per documented wt history. No edema. No evidence of malnutrition. Admitted with shortness of breath with persistent right pneumothorax per MD note, pt has chest tube and recent right upper lobe lobectomy. Noted constipation and abdominal pain, pt receiving BID colace and prn bowel care available, not yet given. Date of last BM documented 05/18. Will continue to follow. Addendum: 05/20/20 at [address] Amended: Links added.
[2020-05-20] MEDS ORDERED: sennosides/docusate sodium tablet PO PRN (13:40)
[2020-05-20] MEDS: methylnaltrexone br 12mg/0.6ml inj***SubQ only SQ SCH (14:08)
[2020-05-20] MEDS: pantoprazole 40mg Tablet.DR PO SCH (14:08)
--- NOTE | 2020-05-20 18:57 | NUR ---
Problems reprioritized. Patient report given, questions answered & plan of care reviewed with MARYAM Hilliard.
[2020-05-20 19:00] VITALS: BP 141/57
[2020-05-21] VITALS: BP 147/66
[2020-05-21] MEDS: HYDROmorphone 1 mg/ml syringe IV PRN ×3 (02:06→17:18)
[2020-05-21] MEDS: HYDROcodone/acetaminophen 10/325mg tab PO PRN ×3 (04:30→21:13)
[2020-05-21 06:20] LABS: PARTIAL THROMBOPLASTIN TIME 27 SECONDS (22-32)
[2020-05-21 06:24] LABS: BASOPHILS # (AUTO) 0.1 X10'3 (0-0.2); BASOPHILS % (AUTO) 1.1 % (0-1); EOSINOPHILS # (AUTO) 0.4 X10'3 (0-0.9); HEMATOCRIT 31.2 % (35.0-45.0); HEMOGLOBIN 10.7 g/dl (12.0-16.0); LYMPHOCYTES # (AUTO) 1.5 X10'3 (1.1-4.8); LYMPHOCYTES % (AUTO) 25.9 % (21-51); MEAN CORPUSCULAR HEMOGLOBIN 33.2 PG (27.0-31.0); MEAN CORPUSCULAR HGB CONC 34.2 g/dL (33.0-36.5); MEAN CORPUSCULAR VOLUME 96.9 FL (78-98); MEAN PLATELET VOLUME 9.3 FL (7.4-10.4); MONOCYTES # (AUTO) 1.2 X10'3 (0-0.9); MONOCYTES % (AUTO) 19.8 % (2-12); NEUTROPHILS # (AUTO) 2.7 X10'3 (1.8-7.7); NEUTROPHILS % (AUTO) 47.2 % (42-75); PLATELET COUNT 270 X10'3 (140-440); RED BLOOD COUNT 3.22 X10'6 (4.20-5.60); RED CELL DISTRIBUTION WIDTH 13.5 % (11.5-14.5); WHITE BLOOD COUNT 5.8 X10'3 (4.5-11.0)
[2020-05-21 06:29] LABS: ALANINE AMINOTRANSFERASE 22 U/L (12-78); ALBUMIN 2.5 G/DL (3.4-5.0); ALBUMIN/GLOBULIN RATIO 0.8 (1.1-1.5); ALKALINE PHOSPHATASE 49 IU/L (46-116); ANION GAP 7 (8-16); ASPARTATE AMINO TRANSFERASE 18 U/L (10-37); BILIRUBIN,TOTAL 0.4 MG/DL (0.1-1.0); BLOOD UREA NITROGEN 5 MG/DL (7-18); BUN/CREATININE RATIO 8.5 (6.6-38.0); CALCIUM 8.5 MG/DL (8.5-10.1); CHLORIDE 109 MMOL/L (99-107); CREATININE 0.59 MG/DL (0.40-0.90); GLUCOSE 105 MG/DL (70-104); POTASSIUM 3.8 MMOL/L (3.5-5.1); SODIUM 142 MMOL/L (135-145); TOTAL CARBON DIOXIDE 26.2 MMOL/L (24-32); TOTAL PROTEIN 5.6 G/DL (6.4-8.2); eGFR > 90 ML/MIN
[2020-05-21 07:00] VITALS: BP 171/75
[2020-05-21] MEDS: K and/or MAG REPLACEMENT MC SCH ×2 (07:02→20:00)
[2020-05-21] MEDS: cefdinir 300mg capsule PO SCH ×2 (07:30→19:35)
[2020-05-21] MEDS: pantoprazole 40mg Tablet.DR PO SCH (07:34)
[2020-05-21] MEDS: levoTHYROXINE 25mcg tablet PO SCH (07:34)
[2020-05-21 09:12] LABS: TOTAL CELLS COUNTED 100
[2020-05-21 09:14] LABS: PLATELET ESTIMATE NORMAL
[2020-05-21 09:15] LABS: POLYCHROMASIA FEW; STOMATOCYTES FEW
[2020-05-21 11:00] VITALS: BP 140/75
[2020-05-21 18:00] VITALS: BP 140/55
--- NOTE | 2020-05-21 18:26 | NUR ---
Problems reprioritized. Patient report given, questions answered & plan of care reviewed with MARYAM Ramirez.
--- NOTE | 2020-05-21 18:28 | NUR ---
Patient in room ANGEL 345. I have received report from MARYAM Sin and had the opportunity to ask questions and assume patient care.
[2020-05-22] VITALS: BP 131/53
[2020-05-22] MEDS: HYDROcodone/acetaminophen 10/325mg tab PO PRN ×4 (01:24→18:14)
[2020-05-22] MEDS: HYDROmorphone 1 mg/ml syringe IV PRN ×4 (01:30→20:38)
--- NOTE | 2020-05-22 06:32 | NUR ---
Problems reprioritized. Patient report given, questions answered & plan of care reviewed with MARYAM Pearson.
--- NOTE | 2020-05-22 06:34 | NUR ---
Patient in room ANGEL 345. I have received report from Tatiana Ramirez RN and had the opportunity to ask questions and assume patient care.
[2020-05-22] MEDS: levoTHYROXINE 25mcg tablet PO SCH (07:27)
[2020-05-22] MEDS: methylnaltrexone br 12mg/0.6ml inj***SubQ only SQ SCH (07:27)
[2020-05-22] MEDS: pantoprazole 40mg Tablet.DR PO SCH (07:27)
[2020-05-22 07:44] LABS: BASOPHILS # (AUTO) 0.1 X10'3 (0-0.2); BASOPHILS % (AUTO) 1.3 % (0-1); EOSINOPHILS # (AUTO) 0.4 X10'3 (0-0.9); EOSINOPHILS % (AUTO) 6.6 % (0-6); HEMATOCRIT 33.8 % (35.0-45.0); HEMOGLOBIN 11.7 g/dl (12.0-16.0); LYMPHOCYTES # (AUTO) 1.5 X10'3 (1.1-4.8); LYMPHOCYTES % (AUTO) 24.8 % (21-51); MEAN CORPUSCULAR HEMOGLOBIN 33.6 PG (27.0-31.0); MEAN CORPUSCULAR HGB CONC 34.8 g/dL (33.0-36.5); MEAN CORPUSCULAR VOLUME 96.7 FL (78-98); MEAN PLATELET VOLUME 9.2 FL (7.4-10.4); MONOCYTES # (AUTO) 1.1 X10'3 (0-0.9); MONOCYTES % (AUTO) 17.7 % (2-12); NEUTROPHILS % (AUTO) 49.6 % (42-75); PLATELET COUNT 341 X10'3 (140-440); RED BLOOD COUNT 3.49 X10'6 (4.20-5.60); RED CELL DISTRIBUTION WIDTH 13.5 % (11.5-14.5); WHITE BLOOD COUNT 6.1 X10'3 (4.5-11.0)
[2020-05-22 08:00] VITALS: BP 137/66
[2020-05-22 08:00] LABS: ALANINE AMINOTRANSFERASE 30 U/L (12-78); ALBUMIN 2.7 G/DL (3.4-5.0); ALBUMIN/GLOBULIN RATIO 0.8 (1.1-1.5); ALKALINE PHOSPHATASE 53 IU/L (46-116); ANION GAP 8 (8-16); ASPARTATE AMINO TRANSFERASE 25 U/L (10-37); BILIRUBIN,TOTAL 0.4 MG/DL (0.1-1.0); BLOOD UREA NITROGEN 7 MG/DL (7-18); BUN/CREATININE RATIO 13.5 (6.6-38.0); CALCIUM 8.6 MG/DL (8.5-10.1); CHLORIDE 107 MMOL/L (99-107); CREATININE 0.52 MG/DL (0.40-0.90); GLUCOSE 99 MG/DL (70-104); MAGNESIUM 2.1 MG/DL (1.5-2.4); POTASSIUM 3.6 MMOL/L (3.5-5.1); SODIUM 141 MMOL/L (135-145); TOTAL CARBON DIOXIDE 26.2 MMOL/L (24-32); eGFR > 90 ML/MIN
[2020-05-22] MEDS: K and/or MAG REPLACEMENT MC SCH ×2 (08:00→20:00)
[2020-05-22 09:20] LABS: PLATELET ESTIMATE NORMAL; TOTAL CELLS COUNTED 100
[2020-05-22 12:00] VITALS: BP 138/57
--- NOTE | 2020-05-22 12:05 | NUR ---
Pt post chest tube removal. no SOB or c/o chest pain. Lungs clear O2sat 98% on R/A.
[2020-05-22] MEDS: cefpodoxime proxetil 100mg tablet PO SCH ×2 (13:41→20:38)
--- NOTE | 2020-05-22 15:37 | NUR ---
PAGER ID: [phone] MESSAGE: Shabnam/surgical [phone]. Pt: Elis. Rm: 345-B. Ok to discharge pt today per Dr Palma. CXR neg for pneumothorax.
[2020-05-22] MEDS ORDERED: CEFP100T7 PO (15:42)
--- NOTE | 2020-05-22 18:47 | NUR ---
Problems reprioritized. Patient report given, questions answered & plan of care reviewed with Nadia RN.
[2020-05-22 19:00] VITALS: BP 120/54
[2020-05-22 23:30] VITALS: BP 113/49
[2020-05-23] MEDS: HYDROcodone/acetaminophen 10/325mg tab PO PRN ×4 (00:01→14:06)
[2020-05-23] MEDS: HYDROmorphone 1 mg/ml syringe IV PRN (01:09)
[2020-05-23 05:48] LABS: BASOPHILS # (AUTO) 0.1 X10'3 (0-0.2); BASOPHILS % (AUTO) 1.3 % (0-1); EOSINOPHILS # (AUTO) 0.5 X10'3 (0-0.9); EOSINOPHILS % (AUTO) 7.5 % (0-6); HEMATOCRIT 32.3 % (35.0-45.0); LYMPHOCYTES # (AUTO) 1.6 X10'3 (1.1-4.8); LYMPHOCYTES % (AUTO) 23.4 % (21-51); MEAN CORPUSCULAR HEMOGLOBIN 32.6 PG (27.0-31.0); MEAN CORPUSCULAR HGB CONC 33.9 g/dL (33.0-36.5); MEAN CORPUSCULAR VOLUME 96.2 FL (78-98); MONOCYTES # (AUTO) 1.1 X10'3 (0-0.9); MONOCYTES % (AUTO) 16.2 % (2-12); NEUTROPHILS # (AUTO) 3.5 X10'3 (1.8-7.7); NEUTROPHILS % (AUTO) 51.6 % (42-75); PLATELET COUNT 355 X10'3 (140-440); RED BLOOD COUNT 3.36 X10'6 (4.20-5.60); RED CELL DISTRIBUTION WIDTH 13.6 % (11.5-14.5); WHITE BLOOD COUNT 6.9 X10'3 (4.5-11.0)
[2020-05-23 06:09] LABS: ALANINE AMINOTRANSFERASE 32 U/L (12-78); ALBUMIN 2.5 G/DL (3.4-5.0); ALBUMIN/GLOBULIN RATIO 0.8 (1.1-1.5); ALKALINE PHOSPHATASE 48 IU/L (46-116); ANION GAP 8 (8-16); ASPARTATE AMINO TRANSFERASE 22 U/L (10-37); BILIRUBIN,TOTAL 0.2 MG/DL (0.1-1.0); BLOOD UREA NITROGEN 9 MG/DL (7-18); BUN/CREATININE RATIO 14.5 (6.6-38.0); CALCIUM 8.6 MG/DL (8.5-10.1); CHLORIDE 107 MMOL/L (99-107); CREATININE 0.62 MG/DL (0.40-0.90); GLUCOSE 96 MG/DL (70-104); POTASSIUM 3.7 MMOL/L (3.5-5.1); SODIUM 140 MMOL/L (135-145); TOTAL CARBON DIOXIDE 25.1 MMOL/L (24-32); TOTAL PROTEIN 5.6 G/DL (6.4-8.2); eGFR > 90 ML/MIN
[2020-05-23 07:00] VITALS: BP 111/51
[2020-05-23] MEDS: K and/or MAG REPLACEMENT MC SCH (08:00)
[2020-05-23] MEDS: cefpodoxime proxetil 100mg tablet PO SCH (09:10)
[2020-05-23] MEDS: levoTHYROXINE 25mcg tablet PO SCH (09:11)
[2020-05-23] MEDS: pantoprazole 40mg Tablet.DR PO SCH (09:11)
[2020-05-23 11:00] VITALS: BP 137/87
--- NOTE | 2020-05-23 11:23 | NUR ---
Dr Win wants Dr Palma to write pain medication orders. I left message on Dr Louie huerta v/m to call re: a patient 2nd call Addendum: 05/23/20 at 1340 by Merlyn Cortez RN 1200 : Dr Palma called back he will bring her a script for pain medication and wants her discharged and to follow up next week with him in his office.
--- NOTE | 2020-05-23 13:38 | NUR ---
PAGER ID: [phone] MESSAGE: Merlyn-Surg [phone] Re: Elis [id number] please call re: Discharge patient states you were going to order an xray Addendum: 05/23/20 at 1341 by Merlyn Cortez RN Per Dr Win she wants another chest xray because patient sounds more wheezy today
--- NOTE | 2020-05-23 14:26 | NUR ---
PAGER ID: [phone] MESSAGE: Merlyn-Surg [id number] Re: Elis [id number] Xray results are in computer do you want to discharge? Addendum: 05/23/20 at 1431 by Merlyn Cortez RN Per Dr Audelia willson to discharge
--- NOTE | 2020-05-23 15:00 | NUR ---
Patient discharge instructions reviewed with patient and patient verbalized understanding. Patient is aware that Dr Palma's office called in [place] to [facility]. Patients IV dc'd cannula intact. Patients dressing changed per Dr Jaramillo instructions and dressing supplies sent home with patient. Patient taken via wheelchair to daughter waiting in car.
--- NOTE | 2020-05-24 15:49 | NUR ---
CASE MANAGEMENT DISCHARGE FOLLOW UP: Spoke with pt via telephone. Pt reports that she is feeling "good." Denies sx of SOB, abdominal pain, chest pain. Verbalizes understanding of s/sx requiring further evaluation/emergent assistance. Pt verbalizes understanding of new/current/stopped prescriptions, states that daughter is picking up medication today. Pt verbalizes compliance with MD discharge instructions. Pt verbalizes importance of making follow-up appointment, states has an appointment scheduled for the May, with Dr Palma's office. Pt verbalizes understanding to keep dressing CDI and that her daughter has the supplies to change dressing as needed. Pt states no further questions/concerns at this time.
== END 2020-05-23 15:10 | disposition home or self-care (01) | DRG 143 ==
LOC: ER 21:26 → ED HOLD 05-18 01:13 → SUR 3N 05-18 08:50
PROVIDERS: ADMIT Family Medicine; ATTEND Internal Medicine
PROC: 0W9930Z Drainage of Right Pleural Cavity with Drainage Device, Percutaneous Approach (ICD-10-PCS; principal; 2020-05-18)
DX: J95.811 Postprocedural pneumothorax (principal); Z20.828 Contact with and (suspected) exposure to other viral communicable diseases; E03.9 Hypothyroidism, unspecified; Z90.49 Acquired absence of other specified parts of digestive tract; Z87.891 Personal history of nicotine dependence; K59.00 Constipation, unspecified; Z90.2 Acquired absence of lung [part of]; Z85.118 Personal history of other malignant neoplasm of bronchus and lung; G89.4 Chronic pain syndrome; K80.20 Calculus of gallbladder without cholecystitis without obstruction; Z98.1 Arthrodesis status; Y83.8 Other surgical procedures as the cause of abnormal reaction of the patient, or of later complication, without mention of misadventure at the time of the procedure; Y82.8 Other medical devices associated with adverse incidents
CPT/HCPCS: 32557; 36415; 71045; 71260; 74177; 76700; 78227; 80053; 83735; 83880; 84443; 84484; 85007; 85025; 85730; 87081; 93005; 94760; 96374; 96375; 97116; 97162; 97530; 99285; A9537; G0378; J1170; J1885; J2212; J2270; J2405; J2805; J7030; Q9967

== ENCOUNTER 2020-06-05 09:31 | Inpatient (IN) | payer MEDICAID ==
[~2020-06-05] VITALS: Ht 154.9 cm; Wt 54.5 kg
[~2020-06-05 09:31] MED LIST changes: -ALBU8.5H8 INH; -CEFD300C3 PO; +CEFP100T7 PO; -IBUP-1986 PO
[2020-06-05] MEDS ORDERED: LORazepam 2 mg/ml vial IV ONE (09:40)
[2020-06-05] MEDS ORDERED: albuterol 2.5 MG/3 ML nebule CONTNEB PRN (09:40)
[2020-06-05] MEDS ORDERED: normal saline 1000ML IV soln IV ONE (09:40)
[2020-06-05] MEDS ORDERED: methylPREDNISolone sod succ 125mg/2ml vial IV ONE (09:40)
[2020-06-05 10:08] LABS: BASOPHILS # (AUTO) 0.1 X10'3 (0-0.2); BASOPHILS % (AUTO) 0.8 % (0-1); EOSINOPHILS # (AUTO) 1.3 X10'3 (0-0.9); EOSINOPHILS % (AUTO) 15.2 % (0-6); HEMATOCRIT 43.4 % (35.0-45.0); HEMOGLOBIN 14.6 g/dl (12.0-16.0); LYMPHOCYTES # (AUTO) 2.6 X10'3 (1.1-4.8); LYMPHOCYTES % (AUTO) 29.2 % (21-51); MEAN CORPUSCULAR HEMOGLOBIN 32.1 PG (27.0-31.0); MEAN CORPUSCULAR HGB CONC 33.7 g/dL (33.0-36.5); MEAN CORPUSCULAR VOLUME 95.4 FL (78-98); MEAN PLATELET VOLUME 8.4 FL (7.4-10.4); MONOCYTES # (AUTO) 0.8 X10'3 (0-0.9); MONOCYTES % (AUTO) 9.2 % (2-12); NEUTROPHILS % (AUTO) 45.6 % (42-75); PLATELET COUNT 377 X10'3 (140-440); RED BLOOD COUNT 4.55 X10'6 (4.20-5.60); RED CELL DISTRIBUTION WIDTH 14.3 % (11.5-14.5); WHITE BLOOD COUNT 8.9 X10'3 (4.5-11.0)
[2020-06-05 10:11] LABS: ABG BASE EXCESS -3.9 mmol/L (-2.0-2.0); ABG HCO3 15.9 mmol/L (22.0-26.0); ABG OXYGEN SATURATION 98.9 % (94-97); ABG PO2 (T) 204.7 mmHg (75.0-100.0); ALLEN'S TEST POSITIVE; FCOHb 8.9 % (0.0-3.9); FLOW 15 L/min; FMetHb 0.1 % (0.0-1.5); TOTAL HEMOGLOBIN 14.7 G/dl (12.0-16.0)
[2020-06-05] MEDS ORDERED: morphine 4 MG/ML inj SYRINge IV PRN (10:15)
[2020-06-05 10:21] LABS: D-DIMER 5.55 MG/L FEU (0-0.50)
[2020-06-05 10:29] LABS: ALANINE AMINOTRANSFERASE 13 U/L (12-78); ALBUMIN 3.6 G/DL (3.4-5.0); ALBUMIN/GLOBULIN RATIO 0.8 (1.1-1.5); ALKALINE PHOSPHATASE 62 IU/L (46-116); ANION GAP 13 (8-16); ASPARTATE AMINO TRANSFERASE 13 U/L (10-37); BILIRUBIN,TOTAL 0.3 MG/DL (0.1-1.0); BLOOD UREA NITROGEN 6 MG/DL (7-18); BUN/CREATININE RATIO 10.5 (6.6-38.0); CALCIUM 9.5 MG/DL (8.5-10.1); CHLORIDE 107 MMOL/L (99-107); CREATININE 0.57 MG/DL (0.40-0.90); GLUCOSE 80 MG/DL (70-104); SODIUM 145 MMOL/L (135-145); TOTAL CARBON DIOXIDE 25.1 MMOL/L (24-32); TOTAL PROTEIN 7.9 G/DL (6.4-8.2); eGFR > 90 ML/MIN
[2020-06-05] MEDS ORDERED: iohexol 350MG/ML 100ml bottle IV ONE (10:53)
[2020-06-05] MEDS ORDERED: ACET-1008 PO (12:15)
[2020-06-05] MEDS ORDERED: GABA-530 PO (12:15)
[2020-06-05] MEDS ORDERED: potassium Cl 20 mEq SR tablet PO PRN ×2 (12:35)
[2020-06-05] MEDS ORDERED: docusate sod 100mg capsule PO PRN (12:35)
[2020-06-05] MEDS ORDERED: acetaminophen 325mg tablet PO PRN (12:35)
[2020-06-05] MEDS ORDERED: ondansetron/PF 4mg/2ml inj IV PRN (12:35)
[2020-06-05] MEDS ORDERED: potassium Cl 40MEQ/1/2NS 520ml 520 ML IV PRN ×2 (12:35)
[2020-06-05] MEDS ORDERED: magnesium 4gm in 100ml NS 100 ML IV PRN (12:35)
[2020-06-05] MEDS ORDERED: morphine 2 MG/ML inj. syringe IV PRN (12:35)
[2020-06-05] MEDS ORDERED: magnesium Cl slow-release 64mg tablet PO PRN (12:35)
[2020-06-05] MEDS ORDERED: magnesium 2GM in 50ml NS 50 ML IV PRN (12:35)
--- NOTE | 2020-06-05 16:06 | NUR ---
Patient in room PCU 3018. I have received report from Peyton FRANCISCO and had the opportunity to ask questions and assume patient care.
[2020-06-05 16:17] VITALS: BP 131/68
[2020-06-05] MEDS: gabapentin 100mg capsule PO SCH ×2 (16:38→23:31)
--- NOTE | 2020-06-05 16:38 | NUR ---
Called Dr. Ruelas to clarify if the patient is going to be getting a chest tube and if the patient should be kept NPO, Dr. Ruelas stated the patient could have a clear liquid diet but to clarify with Dr. Palma . Called Dr. Palma, he stated the chest tube was supposed to be placed in ER. He stated he was going to make some phone calls and hung up. Patient will be kept NPO at this time.
[2020-06-05] MEDS: acetaminophen 325mg tablet PO SCH ×2 (16:39→23:31)
[2020-06-05] MEDS: morphine 2 MG/ML inj. syringe IV PRN ×2 (17:29→23:35)
[2020-06-05 18:00] VITALS: BP 130/61
--- NOTE | 2020-06-05 18:16 | NUR ---
Problems reprioritized. Patient report given, questions answered & plan of care reviewed with Marika Hairston RN.
--- NOTE | 2020-06-05 18:30 | NUR ---
Patient in room PCU 3018. I have received report from VICKY FRANCISCO and had the opportunity to ask questions and assume patient care.
[2020-06-05] MEDS: heparin, porcine 5000 units/ml vial SQ SCH (20:00)
[2020-06-05] MEDS: K and/or MAG REPLACEMENT MC SCH (20:00)
[2020-06-05 22:00] VITALS: BP 128/76
--- NOTE | 2020-06-05 22:31 | NUR ---
CALLED DR. MARMOLEJO AND WAS MADE AWARE THAT LACTIC ACID CAME OUT TO BE 2.3 AND PATIENT IS NPO FOR CHEST TUBE PLACEMENT TOMORROW AM WITH ORDER NS AT 50ML/HR.
[2020-06-05] MEDS ORDERED: normal saline 1000ml 1,000 ML IV SCH (22:40)
[2020-06-06 02:00] VITALS: BP 132/68
[2020-06-06 06:16] LABS: MEAN CORPUSCULAR VOLUME 97.4 FL (78-98); MEAN PLATELET VOLUME 8.8 FL (7.4-10.4)
[2020-06-06 06:19] LABS: BASOPHILS % (AUTO) 0.1 % (0-1); EOSINOPHILS # (AUTO) 0.1 X10'3 (0-0.9); EOSINOPHILS % (AUTO) 0.7 % (0-6); HEMATOCRIT 35.4 % (35.0-45.0); HEMOGLOBIN 11.9 g/dl (12.0-16.0); LYMPHOCYTES # (AUTO) 1.1 X10'3 (1.1-4.8); LYMPHOCYTES % (AUTO) 13.5 % (21-51); MEAN CORPUSCULAR HEMOGLOBIN 32.9 PG (27.0-31.0); MEAN CORPUSCULAR HGB CONC 33.7 g/dL (33.0-36.5); MONOCYTES # (AUTO) 0.8 X10'3 (0-0.9); MONOCYTES % (AUTO) 9.8 % (2-12); NEUTROPHILS # (AUTO) 6.3 X10'3 (1.8-7.7); NEUTROPHILS % (AUTO) 75.9 % (42-75); PLATELET COUNT 259 X10'3 (140-440); RED BLOOD COUNT 3.63 X10'6 (4.20-5.60); RED CELL DISTRIBUTION WIDTH 13.8 % (11.5-14.5); WHITE BLOOD COUNT 8.3 X10'3 (4.5-11.0)
[2020-06-06 06:24] LABS: ALBUMIN 2.8 G/DL (3.4-5.0); ANION GAP 9 (8-16); BLOOD UREA NITROGEN 13 MG/DL (7-18); CALCIUM 8.7 MG/DL (8.5-10.1); CHLORIDE 107 MMOL/L (99-107); GLUCOSE 112 MG/DL (70-104); MAGNESIUM 1.9 MG/DL (1.5-2.4); PARTIAL THROMBOPLASTIN TIME 28 SECONDS (22-32); POTASSIUM 3.8 MMOL/L (3.5-5.1); SODIUM 142 MMOL/L (135-145); TOTAL CARBON DIOXIDE 26.1 MMOL/L (24-32); eGFR > 90 ML/MIN
--- NOTE | 2020-06-06 06:30 | NUR ---
Problems reprioritized. Patient report given, questions answered & plan of care reviewed with VICKY FRANCISCO.
--- NOTE | 2020-06-06 06:31 | NUR ---
Patient in room PCU 3018. I have received report from Minna FRANCISCO and had the opportunity to ask questions and assume patient care.
[2020-06-06 07:00] VITALS: BP 158/73
[2020-06-06] MEDS: heparin, porcine 5000 units/ml vial SQ SCH ×2 (08:00→19:55)
[2020-06-06] MEDS: K and/or MAG REPLACEMENT MC SCH ×2 (08:00→19:50)
[2020-06-06] MEDS: levoTHYROXINE 25mcg tablet PO SCH (08:08)
[2020-06-06] MEDS: acetaminophen 325mg tablet PO SCH ×2 (08:08→16:26)
[2020-06-06] MEDS: gabapentin 100mg capsule PO SCH ×2 (08:08→16:26)
[2020-06-06] MEDS: CefTRIAXone 2gm/D5W 50ml BAG 50 ML IV SCH (08:08)
--- NOTE | 2020-06-06 09:33 | NUR ---
Called Dr. Palma regarding follow up chest x-ray and decrease in size of pneumothorax from prior exam, nurse answered phone and stated she will relay the message to him as he is currently busy.
[2020-06-06 11:00] VITALS: BP 145/76
--- NOTE | 2020-06-06 12:00 | NUR ---
Per Dr. Palma, patient no longer needs placement of chest tube based of AM CXR.
[2020-06-06] MEDS: morphine 2 MG/ML inj. syringe IV PRN ×2 (12:34→19:51)
[2020-06-06 15:00] VITALS: BP 113/62
[2020-06-06 18:00] VITALS: BP 150/69
--- NOTE | 2020-06-06 18:30 | NUR ---
Problems reprioritized. Patient report given, questions answered & plan of care reviewed with Rita FRANCISCO.
[2020-06-06 22:00] VITALS: BP 140/67
[2020-06-07] MEDS: morphine 2 MG/ML inj. syringe IV PRN ×2 (00:11→07:07)
[2020-06-07] MEDS: gabapentin 100mg capsule PO SCH ×2 (00:12→08:11)
[2020-06-07] MEDS: acetaminophen 325mg tablet PO SCH ×2 (00:12→08:10)
[2020-06-07 02:00] VITALS: BP 118/65
[2020-06-07 07:00] VITALS: BP 115/76
--- NOTE | 2020-06-07 07:40 | NUR ---
Patient in room PCU 3018. I have received report from Rita FRANCISCO and had the opportunity to ask questions and assume patient care.
[2020-06-07] MEDS: K and/or MAG REPLACEMENT MC SCH (08:00)
[2020-06-07] MEDS: CefTRIAXone 2gm/D5W 50ml BAG 50 ML IV SCH (08:10)
[2020-06-07] MEDS: levoTHYROXINE 25mcg tablet PO SCH (08:11)
[2020-06-07] MEDS: heparin, porcine 5000 units/ml vial SQ SCH (08:12)
--- NOTE | 2020-06-07 10:05 | NUR ---
Spoke to Dr Aguero regarding if he wants to get a new chest xray today and he tried to call Dr Palma to clarify and we are waiting for response from Dr Palma. Dr Aguero is aware patient is 98% on RA at rest and with ambulation with PT patients sats were 90% on RA. Asked to see about getting PO pain meds for patient she is taking tylenol Q8H scheduled and has been receiving 2mg Morphine IV prn. Dr Aguero will address with patient when he see's her. Also, informed Dr Aguero patient appears to still have at least one suture still in place from her lobectomy on 05/12, we will address with Dr Palma.
[2020-06-07 11:00] VITALS: BP 131/60
[2020-06-07] MEDS ORDERED: HYDR-3965 PO (11:32)
--- NOTE | 2020-06-07 12:25 | NUR ---
PAGER ID: [phone] MESSAGE: Merlyn-Surg [phone] Re: [id number] Gillis patient would like pain meds prior to leaving uses tramadol at home. please call have question
[2020-06-07] MEDS ORDERED: HYDROcodone/acetaminophen 5mg/325mg tablet PO ONE (13:20)
--- NOTE | 2020-06-07 13:57 | NUR ---
Spoke to Dr Palma he is aware patient is being discharge and Dr Aguero said we could take out patients suture out that is still in place from lobectomy. Per Dr Palma leave suture in he will remove in his office at her follow up appointment.
--- NOTE | 2020-06-07 14:30 | NUR ---
Patients discharge instructions reviewed with patient and patient verbalized understanding. I advised patient while she is taking [place] she should refrain from taking tylenol as well. Patient verbalized understanding. Patients IV dc'd by charge weigher cannula intact. Patient was given home medications that were in our pharmacy. Patient received pain medication prior to being discharged, patient aware she is not to drive while taking [place]. Patient called self a cab and was taken to cab on discharge by PCT. Patient will fern picker vehicle later.
[2020-06-07] MEDS ORDERED: lactobacillus rhamnosus 10,000 MMU CELLS/CAPSULE PO SCH (20:00)
== END 2020-06-07 14:37 | disposition home or self-care (01) | DRG 143 ==
LOC: ER 09:32 → ED HOLD 12:35 → PCU 3S 15:44
PROVIDERS: ADMIT Internal Medicine; ATTEND Internal Medicine
DX: J93.83 Other pneumothorax (principal); E03.9 Hypothyroidism, unspecified; G89.4 Chronic pain syndrome; J44.1 Chronic obstructive pulmonary disease with (acute) exacerbation; J96.01 Acute respiratory failure with hypoxia; Z85.118 Personal history of other malignant neoplasm of bronchus and lung; Z87.891 Personal history of nicotine dependence; Z90.2 Acquired absence of lung [part of]
CPT/HCPCS: 36415; 36600; 71045; 71275; 80048; 80053; 82803; 83605; 83735; 83880; 84145; 84484; 85018; 85025; 85379; 85610; 85730; 87040; 87081; 93005; 94640; 94760; 96374; 96375; 97110; 97161; 97530; 99285; A7015; G0378; J0696; J1644; J2060; J2270; J2930; J7030; Q9967

== ENCOUNTER 2020-10-22 14:37 | Inpatient (IN) | payer MEDICAID ==
[~2020-10-22] VITALS: Ht 157.5 cm; Wt 63.6 kg
[~2020-10-22 14:37] MED LIST changes: +ACET-1008 PO; -CEFP100T7 PO; +GABA-530 PO
[2020-10-22] MEDS ORDERED: ondansetron 4mg rapidly disintigrating tab PO ONE (15:35)
[2020-10-22] MEDS ORDERED: acetaminophen 325mg tablet PO ONE (15:35)
[2020-10-22] MEDS ORDERED: ketorolac trometh. 30mg/ml inj. IV ONE (15:35)
[2020-10-22] MEDS ORDERED: iohexol 350MG/ML 100ml bottle IV ONE (16:04)
[2020-10-22 16:07] LABS: BASOPHILS # (AUTO) 0.1 X10'3 (0-0.2); BASOPHILS % (AUTO) 0.6 % (0-1); EOSINOPHILS # (AUTO) 0.2 X10'3 (0-0.9); EOSINOPHILS % (AUTO) 2.2 % (0-6); HEMATOCRIT 45.2 % (35.0-45.0); HEMOGLOBIN 15.8 g/dl (12.0-16.0); LYMPHOCYTES # (AUTO) 1.3 X10'3 (1.1-4.8); MEAN CORPUSCULAR HEMOGLOBIN 34.8 PG (27.0-31.0); MEAN CORPUSCULAR HGB CONC 34.9 g/dL (33.0-36.5); MEAN CORPUSCULAR VOLUME 99.9 FL (78-98); MEAN PLATELET VOLUME 8.7 FL (7.4-10.4); MONOCYTES # (AUTO) 0.6 X10'3 (0-0.9); MONOCYTES % (AUTO) 6.9 % (2-12); NEUTROPHILS # (AUTO) 6.1 X10'3 (1.8-7.7); NEUTROPHILS % (AUTO) 74.3 % (42-75); PLATELET COUNT 274 X10'3 (140-440); RED BLOOD COUNT 4.52 X10'6 (4.20-5.60); RED CELL DISTRIBUTION WIDTH 14.2 % (11.5-14.5); WHITE BLOOD COUNT 8.3 X10'3 (4.5-11.0)
[2020-10-22 16:33] LABS: ALANINE AMINOTRANSFERASE 20 U/L (12-78); ALBUMIN 3.7 G/DL (3.4-5.0); ALBUMIN/GLOBULIN RATIO 0.9 (1.1-1.5); ALKALINE PHOSPHATASE 78 IU/L (46-116); ANION GAP 10 (8-16); ASPARTATE AMINO TRANSFERASE 18 U/L (10-37); BILIRUBIN,TOTAL 0.5 MG/DL (0.1-1.0); BLOOD UREA NITROGEN 10 MG/DL (7-18); BUN/CREATININE RATIO 14.5 (6.6-38.0); CALCIUM 9.6 MG/DL (8.5-10.1); CHLORIDE 107 MMOL/L (99-107); CREATININE 0.69 MG/DL (0.40-0.90); GLUCOSE 84 MG/DL (70-104); POTASSIUM 3.5 MMOL/L (3.5-5.1); SODIUM 144 MMOL/L (135-145); TOTAL CARBON DIOXIDE 27.1 MMOL/L (24-32); TOTAL PROTEIN 7.7 G/DL (6.4-8.2); eGFR 87 ML/MIN
[2020-10-22 16:35] LABS: ETHANOL < 0.010 GM/DL (0.0-0.010); TROPONIN I < 0.04 NG/ML (0.0-0.05)
[2020-10-22] MEDS ORDERED: heparin 10,000 units/1 ML INJ IV ONE ×2 (18:25→18:30)
[2020-10-22] MEDS ORDERED: bisacodyl 5mg tablet.DR PO ONE (18:25)
[2020-10-22] MEDS ORDERED: heparin 10,000 units/1 ML INJ IV PRN (18:25)
[2020-10-22] MEDS ORDERED: IBUP-1984 PO (19:00)
[2020-10-22] MEDS ORDERED: PREG50CA PO (19:01)
[2020-10-22] MEDS ORDERED: BACL-11 PO (19:01)
[2020-10-22] MEDS ORDERED: potassium Cl 20 mEq SR tablet PO PRN (19:15)
[2020-10-22] MEDS ORDERED: potassium Cl 40MEQ/1/2NS 520ml 520 ML IV PRN ×2 (19:15)
[2020-10-22] MEDS ORDERED: ondansetron/PF 4mg/2ml inj IV PRN (19:15)
[2020-10-22] MEDS ORDERED: magnesium hydroxide 30ml (MOM) UD suspension PO PRN (19:15)
[2020-10-22] MEDS ORDERED: acetaminophen 325mg tablet PO PRN ×2 (19:15)
[2020-10-22] MEDS ORDERED: magnesium Cl slow-release 64mg tablet PO PRN (19:15)
[2020-10-22] MEDS ORDERED: magnesium 2GM in 50ml NS 50 ML IV PRN (19:15)
[2020-10-22] MEDS ORDERED: mag hydrox/Alum hydrox/simeth 30ml oral suspension PO PRN (19:15)
[2020-10-22] MEDS ORDERED: magnesium 4gm in 100ml NS 100 ML IV PRN (19:15)
[2020-10-22] MEDS ORDERED: albuterol 2.5 MG/3 ML nebule NEB PRN (19:25)
[2020-10-22] MEDS: K and/or MAG REPLACEMENT MC SCH (19:27)
[2020-10-22 19:30] LABS: CLARITY,URINE CLEAR (Clear); COLOR,URINE AMBER (Yellow); GLUCOSE, URINE NEGATIVE (Neg); KETONES,URINE NEGATIVE (Neg); LEUKOCYTE ESTERASE ,URINE NEGATIVE (Neg); NITRITES, URINE NEGATIVE (Neg); OCCULT BLOOD,URINE NEGATIVE (Neg); PH,URINE 6.5 (4.8-8.0); PROTEIN,URINE TRACE mg/dl (Neg); UROBILINOGEN,URINE 0.2 E.U/dL (0.2-1.0)
[2020-10-22 19:31] LABS: UA COLLECTION TYPE CLN CATCH MIDSTREAM
[2020-10-22] MEDS: heparin 25,000 UNIT/250ml bag 250 ML IV SCH (19:36)
[2020-10-22] MEDS: normal saline 1000ml 1,000 ML IV SCH (19:41)
[2020-10-22 19:53] LABS: BACTERIA,URINE NONE SEEN /HPF (Neg); MUCUS STRANDS NONE SEEN /LPF (Neg); RBC,URINE 0-2 /HPF (0-2); SQUAMOUS EPITHELIAL CELL,UR FEW /LPF (FEW); WBC,URINE 0-4 /HPF (0-4)
[2020-10-22] MEDS ORDERED: temazepam 15mg capsule PO PRN (21:00)
[2020-10-22] MEDS: morphine 2 MG/ML inj. syringe IV PRN (21:35)
[2020-10-22 22:40] VITALS: BP 141/51
[2020-10-23] MEDS: morphine 2 MG/ML inj. syringe IV PRN ×5 (01:53→18:38)
[2020-10-23] MEDS: heparin 25,000 UNIT/250ml bag 250 ML IV SCH (05:16)
[2020-10-23] MEDS: normal saline 1000ml 1,000 ML IV SCH ×3 (05:47→21:24)
[2020-10-23 07:00] VITALS: BP 153/65
[2020-10-23 07:45] LABS: BASOPHILS % (AUTO) 0.7 % (0-1); EOSINOPHILS # (AUTO) 0.2 X10'3 (0-0.9); EOSINOPHILS % (AUTO) 3.6 % (0-6); HEMATOCRIT 41.5 % (35.0-45.0); HEMOGLOBIN 14.2 g/dl (12.0-16.0); LYMPHOCYTES # (AUTO) 1.9 X10'3 (1.1-4.8); LYMPHOCYTES % (AUTO) 29.5 % (21-51); MEAN CORPUSCULAR HEMOGLOBIN 34.2 PG (27.0-31.0); MEAN CORPUSCULAR HGB CONC 34.2 g/dL (33.0-36.5); MEAN CORPUSCULAR VOLUME 99.8 FL (78-98); MEAN PLATELET VOLUME 8.9 FL (7.4-10.4); MONOCYTES # (AUTO) 0.6 X10'3 (0-0.9); MONOCYTES % (AUTO) 9.5 % (2-12); NEUTROPHILS # (AUTO) 3.7 X10'3 (1.8-7.7); NEUTROPHILS % (AUTO) 56.7 % (42-75); PLATELET COUNT 243 X10'3 (140-440); RED BLOOD COUNT 4.16 X10'6 (4.20-5.60); WHITE BLOOD COUNT 6.5 X10'3 (4.5-11.0)
[2020-10-23 07:57] LABS: ALANINE AMINOTRANSFERASE 20 U/L (12-78); ALBUMIN 3.2 G/DL (3.4-5.0); ALKALINE PHOSPHATASE 60 IU/L (46-116); ANION GAP 10 (8-16); ASPARTATE AMINO TRANSFERASE 17 U/L (10-37); BILIRUBIN,TOTAL 0.8 MG/DL (0.1-1.0); BLOOD UREA NITROGEN 8 MG/DL (7-18); CALCIUM 8.8 MG/DL (8.5-10.1); CHLORIDE 110 MMOL/L (99-107); GLUCOSE 86 MG/DL (70-104); MAGNESIUM 1.8 MG/DL (1.5-2.4); POTASSIUM 3.3 MMOL/L (3.5-5.1); SODIUM 144 MMOL/L (135-145); TOTAL CARBON DIOXIDE 24.1 MMOL/L (24-32); TOTAL PROTEIN 6.5 G/DL (6.4-8.2); eGFR > 90 ML/MIN
[2020-10-23] MEDS: K and/or MAG REPLACEMENT MC SCH ×2 (08:44→20:00)
[2020-10-23] MEDS: potassium Cl 20 mEq SR tablet PO PRN ×2 (09:13→21:14)
[2020-10-23] MEDS: pantoprazole 40 MG vial IV SCH ×2 (09:13→21:24)
[2020-10-23] MEDS: apixaban 5mg tablet PO SCH ×2 (09:16→21:15)
[2020-10-23 11:00] VITALS: BP 118/69
[2020-10-23 18:00] VITALS: BP 180/80
--- NOTE | 2020-10-23 18:45 | NUR ---
pt painful. given morphine IV - noted elevated BP due to pain. will recheck.
--- NOTE | 2020-10-23 19:35 | NUR ---
pt's pain controlled. will take oral pain meds with PM meds later. pt states she takes ibuprofen, bacolfen and lyrica at home. norco and lyrica ordered here. will ask about baclofen. noted BP lower with less pain.
[2020-10-23 19:41] VITALS: BP 147/62
[2020-10-23] MEDS ORDERED: baclofen 10mg tablet PO SCH (21:00)
[2020-10-23] MEDS: pregabalin 25mg capsule PO SCH (21:14)
[2020-10-23] MEDS: HYDROcodone/acetaminophen 5mg/325mg tablet PO PRN (21:16)
[2020-10-23 22:00] VITALS: BP 162/73
[2020-10-24] MEDS: HYDROcodone/acetaminophen 5mg/325mg tablet PO PRN ×2 (01:41→05:36)
[2020-10-24 06:00] VITALS: BP 180/78
--- NOTE | 2020-10-24 06:23 | NUR ---
reported to days. noted patient's pain to left arm cramping and baclofen dose correct. also pt requsted enema be given this am even though she previously refused. only has flatus no BM and states abd is "getting more bloated."
[2020-10-24 06:29] LABS: BASOPHILS % (AUTO) 0.9 % (0-1); EOSINOPHILS # (AUTO) 0.2 X10'3 (0-0.9); EOSINOPHILS % (AUTO) 4.4 % (0-6); HEMATOCRIT 39.4 % (35.0-45.0); HEMOGLOBIN 13.3 g/dl (12.0-16.0); LYMPHOCYTES # (AUTO) 1.6 X10'3 (1.1-4.8); LYMPHOCYTES % (AUTO) 30.3 % (21-51); MEAN CORPUSCULAR HGB CONC 33.7 g/dL (33.0-36.5); MEAN CORPUSCULAR VOLUME 100.8 FL (78-98); MEAN PLATELET VOLUME 8.7 FL (7.4-10.4); MONOCYTES # (AUTO) 0.6 X10'3 (0-0.9); MONOCYTES % (AUTO) 11.9 % (2-12); NEUTROPHILS # (AUTO) 2.7 X10'3 (1.8-7.7); NEUTROPHILS % (AUTO) 52.5 % (42-75); PLATELET COUNT 196 X10'3 (140-440); RED CELL DISTRIBUTION WIDTH 13.9 % (11.5-14.5); WHITE BLOOD COUNT 5.2 X10'3 (4.5-11.0)
[2020-10-24 06:46] LABS: ALANINE AMINOTRANSFERASE 17 U/L (12-78); ALBUMIN 2.7 G/DL (3.4-5.0); ALBUMIN/GLOBULIN RATIO 0.9 (1.1-1.5); ALKALINE PHOSPHATASE 56 IU/L (46-116); ANION GAP 10 (8-16); ASPARTATE AMINO TRANSFERASE 17 U/L (10-37); BILIRUBIN,TOTAL 0.8 MG/DL (0.1-1.0); BLOOD UREA NITROGEN 5 MG/DL (7-18); BUN/CREATININE RATIO 9.8 (6.6-38.0); CALCIUM 8.4 MG/DL (8.5-10.1); CHLORIDE 107 MMOL/L (99-107); CREATININE 0.51 MG/DL (0.40-0.90); GLUCOSE 90 MG/DL (70-104); MAGNESIUM 1.7 MG/DL (1.5-2.4); POTASSIUM 3.8 MMOL/L (3.5-5.1); SODIUM 140 MMOL/L (135-145); TOTAL CARBON DIOXIDE 23.4 MMOL/L (24-32); TOTAL PROTEIN 5.8 G/DL (6.4-8.2); eGFR > 90 ML/MIN
[2020-10-24] MEDS ORDERED: levoTHYROXINE 25mcg tablet PO SCH (07:00)
--- NOTE | 2020-10-24 07:05 | NUR ---
PAGER ID: [phone] MESSAGE: [phone] Elis note says suppository for constipation, need order please. [id number] WOLF
[2020-10-24] MEDS ORDERED: bisacodyl 10mg suppository rectal RC PRN (07:10)
[2020-10-24] MEDS: apixaban 5mg tablet PO SCH (07:24)
[2020-10-24] MEDS: pregabalin 25mg capsule PO SCH (07:24)
[2020-10-24] MEDS: pantoprazole 40 MG vial IV SCH (07:25)
[2020-10-24] MEDS: K and/or MAG REPLACEMENT MC SCH (08:00)
[2020-10-24] MEDS ORDERED: baclofen 10mg tablet PO SCH (08:00)
--- NOTE | 2020-10-24 09:38 | NUR ---
REPORT TO NELSON FRANCISCO
--- NOTE | 2020-10-24 09:44 | NUR ---
Report received from Juana FRANCISCO. Patient alert, oriented x 4, not in distress. I introduced myself to the patient.
[2020-10-24 10:00] VITALS: BP 139/59
[2020-10-24] MEDS ORDERED: LEVO25TA7 PO (10:39)
[2020-10-24] MEDS ORDERED: PANT40TA54 PO (10:39)
[2020-10-24] MEDS ORDERED: BAC10T PO ×3 (10:40→11:13)
[2020-10-24] MEDS ORDERED: APIX5TAB3 PO (11:01)
[2020-10-24] MEDS ORDERED: SENN-223 PO (11:16)
--- NOTE | 2020-10-24 12:53 | NUR ---
Discharge instructions given to patient, patient verbalized understanding of all instructions made. Peripheral IV catheter removed, tip intact. Instructed patient to ensure she has all her belongings with her before leaving. New prescriptions called in to her pharmacy c/o Nargis FRANCISCO. Teaching materials regarding pulmonary embolism and bleeding precaution while on anticoagulant were discussed with patient. Patient stated that her friend will be the one to pick her up for a ride today at around 2:00pm.
[2020-10-30] MEDS ORDERED: apixaban 5mg tablet PO SCH (08:00)
== END 2020-10-24 13:45 | disposition home or self-care (01) | DRG 134 ==
LOC: ER 14:38 → OBSVTOIN 19:13 → ED HOLD 19:13 → EDBEDREQ 21:30 → ORTHO 4S 22:40
PROVIDERS: ADMIT Internal Medicine; ATTEND Internal Medicine
PROC: B32T1ZZ Computerized Tomography (CT Scan) of Left Pulmonary Artery using Low Osmolar Contrast (ICD-10-PCS; principal; 2020-10-22)
PROC: B3201ZZ Computerized Tomography (CT Scan) of Thoracic Aorta using Low Osmolar Contrast (ICD-10-PCS; 2020-10-22)
PROC: B32S1ZZ Computerized Tomography (CT Scan) of Right Pulmonary Artery using Low Osmolar Contrast (ICD-10-PCS; 2020-10-22)
PROC: BW211ZZ Computerized Tomography (CT Scan) of Abdomen and Pelvis using Low Osmolar Contrast (ICD-10-PCS; 2020-10-22)
DX: I26.99 Other pulmonary embolism without acute cor pulmonale (principal); E03.9 Hypothyroidism, unspecified; K59.00 Constipation, unspecified; G89.4 Chronic pain syndrome; M54.2 Cervicalgia; J44.9 Chronic obstructive pulmonary disease, unspecified; Z85.118 Personal history of other malignant neoplasm of bronchus and lung; Z87.891 Personal history of nicotine dependence; Z90.2 Acquired absence of lung [part of]
CPT/HCPCS: 36415; 71045; 71275; 74177; 80053; 80320; 81001; 83605; 83735; 83880; 84145; 84484; 85025; 85610; 85730; 87081; 93005; 96375; 97161; 97530; 99285; C9113; G0378; J1644; J1885; J2270; J7030; Q9967

== ENCOUNTER 2020-11-09 15:47 | Emergency (ER) | payer MEDICAID ==
[~2020-11-09] VITALS: Ht 157.5 cm; Wt 63.7 kg
[~2020-11-09 15:47] MED LIST changes: -ACET-1008 PO; +APIX5TAB3 PO; +BAC10T PO; -GABA-530 PO; +PANT40TA54 PO; +PREG50CA PO; +SENN-223 PO
[2020-11-09 16:31] LABS: BASOPHILS # (AUTO) 0.1 X10'3 (0-0.2); BASOPHILS % (AUTO) 0.8 % (0-1); EOSINOPHILS # (AUTO) 0.3 X10'3 (0-0.9); EOSINOPHILS % (AUTO) 3.3 % (0-6); HEMATOCRIT 41.1 % (35.0-45.0); HEMOGLOBIN 13.7 g/dl (12.0-16.0); LYMPHOCYTES # (AUTO) 1.4 X10'3 (1.1-4.8); LYMPHOCYTES % (AUTO) 17.1 % (21-51); MEAN CORPUSCULAR HEMOGLOBIN 33.6 PG (27.0-31.0); MEAN CORPUSCULAR HGB CONC 33.4 g/dL (33.0-36.5); MEAN CORPUSCULAR VOLUME 100.6 FL (78-98); MEAN PLATELET VOLUME 9.2 FL (7.4-10.4); MONOCYTES # (AUTO) 0.7 X10'3 (0-0.9); MONOCYTES % (AUTO) 8.1 % (2-12); NEUTROPHILS # (AUTO) 5.9 X10'3 (1.8-7.7); NEUTROPHILS % (AUTO) 70.7 % (42-75); PLATELET COUNT 278 X10'3 (140-440); RED BLOOD COUNT 4.08 X10'6 (4.20-5.60); RED CELL DISTRIBUTION WIDTH 13.3 % (11.5-14.5); WHITE BLOOD COUNT 8.3 X10'3 (4.5-11.0)
--- NOTE | 2020-11-09 16:41 | NUR ---
NEUROLOGIST IN [place] DR SOTERO BERRY HAD PALPABLE MASS IN RIGHT ABDOMEN
[2020-11-09 16:46] LABS: ALANINE AMINOTRANSFERASE 21 U/L (12-78); ALBUMIN 3.4 G/DL (3.4-5.0); ALBUMIN/GLOBULIN RATIO 0.9 (1.1-1.5); ALKALINE PHOSPHATASE 55 IU/L (46-116); ANION GAP 10 (8-16); ASPARTATE AMINO TRANSFERASE 19 U/L (10-37); BILIRUBIN,TOTAL 0.4 MG/DL (0.1-1.0); BLOOD UREA NITROGEN 11 MG/DL (7-18); BUN/CREATININE RATIO 17.5 (6.6-38.0); CALCIUM 9.5 MG/DL (8.5-10.1); CHLORIDE 109 MMOL/L (99-107); CREATININE 0.63 MG/DL (0.40-0.90); GLUCOSE 91 MG/DL (70-104); POTASSIUM 3.8 MMOL/L (3.5-5.1); SODIUM 146 MMOL/L (135-145); TOTAL CARBON DIOXIDE 27.1 MMOL/L (24-32); eGFR > 90 ML/MIN
[2020-11-09 16:47] LABS: LIPASE 58 U/L (73-393)
[2020-11-09] MEDS ORDERED: pregabalin 75mg capsule PO ONE (17:35)
[2020-11-09] MEDS ORDERED: baclofen 10mg tablet PO PRN (17:35)
--- NOTE | 2020-11-09 17:37 | NUR ---
RELIEVING RN FOR BREAK, PT IS RESTING QUIETLY ON GURNEY, C/O LEFT SHOULDER PAIN, PROVIDER AWARE AND IS GOING TO PLACE ORDER FOR BACLOFEN, LYRICA AND TYLENOL, H/O PE IN RT LUNG, NO RESP DISTRESS, TALKING FULL SENTENCES, STREAMING MEDIA SPECIALIST AT BEDSIDE
[2020-11-09 17:43] LABS: CLARITY,URINE CLOUDY (Clear); COLOR,URINE YELLOW (Yellow); GLUCOSE, URINE NEGATIVE (Neg); KETONES,URINE NEGATIVE (Neg); LEUKOCYTE ESTERASE ,URINE NEGATIVE (Neg); NITRITES, URINE NEGATIVE (Neg); OCCULT BLOOD,URINE NEGATIVE (Neg); PROTEIN,URINE NEGATIVE (Neg); UROBILINOGEN,URINE 0.2 E.U/dL (0.2-1.0)
[2020-11-09 17:46] LABS: URINE HCG NEGATIVE (NEG)
[2020-11-09 17:55] LABS: PARTIAL THROMBOPLASTIN TIME 30 SECONDS (22-32)
[2020-11-09 17:56] LABS: UA COLLECTION TYPE CLN CATCH MIDSTREAM
[2020-11-09 17:57] LABS: BACTERIA,URINE 2+ /HPF (Neg); MUCUS STRANDS MODERATE /LPF (Neg); SQUAMOUS EPITHELIAL CELL,UR MANY /LPF (FEW)
[2020-11-09 17:58] LABS: RBC,URINE 0-2 /HPF (0-2)
[2020-11-09 17:59] LABS: WBC,URINE 0-4 /HPF (0-4)
[2020-11-09] MEDS ORDERED: acetaminophen 325mg tablet PO ONE (18:05)
--- NOTE | 2020-11-09 18:37 | NUR ---
US completed- patient tolerated well. Able to swallow pills easily
[2020-11-09 19:06] VITALS: BP 150/80
== END 2020-11-09 19:07 | disposition home or self-care (01) ==
LOC: ER 15:48
DX: K80.20 Calculus of gallbladder without cholecystitis without obstruction (principal); R07.89 Other chest pain; R06.02 Shortness of breath; R19.00 Intra-abdominal and pelvic swelling, mass and lump, unspecified site; K59.00 Constipation, unspecified; R53.1 Weakness; I10 Essential (primary) hypertension; E03.9 Hypothyroidism, unspecified; F17.200 Nicotine dependence, unspecified, uncomplicated; Z86.711 Personal history of pulmonary embolism; Z85.118 Personal history of other malignant neoplasm of bronchus and lung; Z98.890 Other specified postprocedural states; Z60.2 Problems related to living alone; Z79.899 Other long term (current) drug therapy
CPT/HCPCS: 36415; 71046; 76700; 80053; 81001; 81025; 83690; 83880; 84484; 85025; 85610; 85730; 93005; 93971; 99285

== ENCOUNTER 2021-10-14 13:45 | Emergency (ER) | payer MEDICAID ==
[~2021-10-14] VITALS: Ht 157.5 cm; Wt 52.7 kg
[2021-10-14 13:57] VITALS: BP 136/73
--- NOTE | 2021-10-14 15:17 | NUR ---
PATIENT IS HERE FOR REFILL OF LYRICA. PATIENT SEES DOCTOR IN [place] BUT WAS UNABLE TO GET IN CONTACT WITH HER FOR REFILL ORDER, AND SHE IS NOW OUT OF HER MEDICATION.
[2021-10-14] MEDS ORDERED: PREG50CA PO (15:23)
== END 2021-10-14 15:32 | disposition home or self-care (01) ==
LOC: ER 13:46
DX: M62.838 Other muscle spasm (principal); Z76.0 Encounter for issue of repeat prescription; I10 Essential (primary) hypertension; E03.9 Hypothyroidism, unspecified; Z87.01 Personal history of pneumonia (recurrent); Z85.9 Personal history of malignant neoplasm, unspecified; Z85.118 Personal history of other malignant neoplasm of bronchus and lung; Z79.899 Other long term (current) drug therapy; Z79.01 Long term (current) use of anticoagulants
CPT/HCPCS: 99281

== ENCOUNTER 2022-08-28 20:22 | Emergency (ER) | payer MEDICAID ==
[~2022-08-28] VITALS: Ht 160 cm; Wt 67.7 kg
[2022-08-28 20:38] VITALS: BP 171/100
[2022-08-28] MEDS ORDERED: PREG50CA PO (22:26)
== END 2022-08-28 22:42 | disposition home or self-care (01) ==
LOC: ER 20:23
DX: M54.12 Radiculopathy, cervical region (principal); G89.29 Other chronic pain; I10 Essential (primary) hypertension; E03.9 Hypothyroidism, unspecified; Z98.890 Other specified postprocedural states; Z60.2 Problems related to living alone; Z79.01 Long term (current) use of anticoagulants; Z79.899 Other long term (current) drug therapy
CPT/HCPCS: 99281

== ENCOUNTER 2022-10-29 19:56 | Emergency (ER) | payer MEDICAID ==
[~2022-10-29] VITALS: Ht 160 cm; Wt 65.0 kg
[2022-10-30] MEDS ORDERED: ibuprofen tablet 400 MG TABLET PO ONE (00:30)
[2022-10-30] MEDS ORDERED: iohexol 350MG/ML 100ml bottle IV ONE (00:48)
[2022-10-30] MEDS ORDERED: ondansetron 4mg rapidly disintigrating tab PO ONE (00:55)
[2022-10-30] MEDS ORDERED: HYDROcodone/acetaminophen 5mg/325mg tablet PO ONE (00:55)
[2022-10-30 01:09] LABS: BASOPHILS # (AUTO) 0.1 X10'3 (0-0.2); BASOPHILS % (AUTO) 1.3 % (0-1); EOSINOPHILS # (AUTO) 0.4 X10'3 (0-0.9); HEMATOCRIT 39.1 % (35.0-45.0); LYMPHOCYTES # (AUTO) 2.4 X10'3 (1.1-4.8); LYMPHOCYTES % (AUTO) 45.5 % (21-51); MEAN CORPUSCULAR HEMOGLOBIN 30.2 PG (27.0-31.0); MEAN CORPUSCULAR HGB CONC 33.3 g/dL (33.0-36.5); MEAN CORPUSCULAR VOLUME 90.6 FL (78-98); MEAN PLATELET VOLUME 9.5 FL (7.4-10.4); MONOCYTES # (AUTO) 0.6 X10'3 (0-0.9); MONOCYTES % (AUTO) 10.4 % (2-12); NEUTROPHILS # (AUTO) 1.9 X10'3 (1.8-7.7); NEUTROPHILS % (AUTO) 34.8 % (42-75); PLATELET COUNT 208 X10'3 (140-440); RED BLOOD COUNT 4.32 X10'6 (4.20-5.60); RED CELL DISTRIBUTION WIDTH 14.9 % (11.5-14.5); WHITE BLOOD COUNT 5.4 X10'3 (4.5-11.0)
[2022-10-30 01:22] LABS: APTT 29 SECONDS (22-32)
[2022-10-30 01:30] LABS: ALANINE AMINOTRANSFERASE 16 U/L (12-78); ALBUMIN 3.4 G/DL (3.4-5.0); ALBUMIN/GLOBULIN RATIO 1.1 (1.1-1.5); ALKALINE PHOSPHATASE 63 IU/L (46-116); ANION GAP 4 (8-16); ASPARTATE AMINO TRANSFERASE 19 U/L (10-37); BILIRUBIN,TOTAL 0.4 MG/DL (0.1-1.0); BLOOD UREA NITROGEN 9 MG/DL (7-18); BUN/CREATININE RATIO 14.1 (10.0-20.0); C-REACTIVE PROTEIN 1.32 MG/DL (0.0-0.5); CALCIUM 9.1 MG/DL (8.5-10.1); CHLORIDE 110 MMOL/L (99-107); CREATININE 0.64 MG/DL (0.40-0.90); GLUCOSE 104 MG/DL (70-104); POTASSIUM 4.2 MMOL/L (3.5-5.1); SODIUM 143 MMOL/L (135-145); TOTAL PROTEIN 6.4 G/DL (6.4-8.2); eGFR > 90 ML/MIN
[2022-10-30 02:30] VITALS: BP 144/82
[2022-10-31] MEDS ORDERED: HYDR-3965 PO (00:42)
== END 2022-10-30 02:52 | disposition home or self-care (01) ==
LOC: ER 19:56
DX: M79.10 Myalgia, unspecified site (principal); E03.9 Hypothyroidism, unspecified; I10 Essential (primary) hypertension; F17.200 Nicotine dependence, unspecified, uncomplicated; Z79.899 Other long term (current) drug therapy; Z88.1 Allergy status to other antibiotic agents
CPT/HCPCS: 36415; 71045; 80053; 82948; 85025; 85610; 85651; 85730; 86140; 86870; 86885; 86900; 86901; 86902; 86905; 99285; J3490; Q9967

== ENCOUNTER 2025-01-26 17:19 | Inpatient (IN) | payer MEDICAID ==
[~2025-01-26] VITALS: Ht 160 cm; Wt 51.8 kg
[~2025-01-26 17:19] MED LIST changes: -BAC10T PO; +BACL-145 PO
[2025-01-26 18:33] LABS: MEAN PLATELET VOLUME 10.2 FL (7.4-10.4); RED CELL DISTRIBUTION WIDTH 14.7 % (11.5-14.5)
[2025-01-26 18:48] LABS: CREATININE 0.62 MG/DL (0.40-0.90); TOTAL CARBON DIOXIDE 28.4 MMOL/L (24-32); eCRCL 75 ML/MIN; eGFR > 90 ML/MIN
[2025-01-26] MEDS ORDERED: iohexol 300mg/ml 100ml inj. ONE (19:00)
--- NOTE | 2025-01-26 21:06 | RADIOLOGY REPORT ---
Procedure: CT CT ABDOMEN [facility] Study Date and Requested Time: 08:39 PM History: ABD PAIN Comparison: ULTRASOUND OF ABDOMEN on DOS: 11/09/20 Dose: CTDI: 7.22 mGy DLP: 135.33 mGycm Technique: Multiplanar images obtained through the abdomen and pelvis without contrast Findings: Bibasilar atelectasis. Partially visualized heart is unremarkable. Status post cholecystectomy. Calcified granulomas within the liver. Mild hepatomegaly. Otherwise, l iver, spleen, pancreas and adrenal glands unremarkable. Kidneys, ureters and urinary bladder unremarkable. Kidneys, ureters, and urinary bladder are within normal limits. 2.9 x 3 cm cystic area over the uteri ne fundus. Bilateral ovaries are unremarkable. Distal esophagus is unremarkable. Stomach is unremarkable. Small bowel grossly unremarkable with no e vidence of obstruction. Appendix not definitely visualized. Small to moderate amount of fecal materia l within the colon. Scattered colonic diverticulosis without diverticulitis. No evidence of intraperitoneal free air or free fluid. Moderate to heavy atherosclerotic calcification of the aorta with mild atherosclerotic calcification of bilateral iliacs. No significant lymphadenopathy. Mild body wall edema. No evidence of acute osseous abnormalities. Diffuse demineralization. No evidence of intraperitoneal free fluid, or free air. No evidence of aortic aneurysm. No significant lymphadenopathy. The soft tissues are unremarkable. No destructive osseous lesions are noted. Impression: Scattered colonic diverticulosis without diverticulitis. Small to moderate amount of fecal material within the colon. 2.9 x 3 cm cystic area over the uterine fundus. Pelvic ultrasound is recommended for further evaluati on. Mild body wall edema.
[2025-01-26 21:50] LABS: LEUKOCYTE ESTERASE ,URINE MODERATE (Neg); NITRITES, URINE NEGATIVE (Neg); OCCULT BLOOD,URINE MODERATE (Neg)
[2025-01-26 21:56] LABS: UA COLLECTION TYPE CLN CATCH MIDSTREAM
[2025-01-26 22:34] LABS: MUCUS STRANDS FEW /LPF (Neg); SQUAMOUS EPITHELIAL CELL,UR FEW /LPF (FEW); WBC CLUMPS,URINE FEW /HPF (NEGATIVE)
--- NOTE | 2025-01-26 22:56 | Physician Documentation ---
History of Present Illness ~ Chief Complaint: Urinary Symptoms Stated Complaint: DOCTOR REFERAL Time Seen by MD: 22:42 OK to notify your PCP?: Yes Primary Medical Doctor: LAURIE TRIVEDI: [place] Source: patient, RN/, RN notes reviewed, old records Mode of Arrival: POV Exam Limitations: no limitations HPI BED 17 This patient is a 65 y/o female who presents to ED with chief complaint of urinary discharge. Patient had an appointment to see her primary doctor today, and was sent here. She has failed outpatient antibiotics twice for UTI. She is now having greenish discharge as well as blood after urinating, back pain, fevers, and night sweats which have significantly worsened over the past four days. This morning she also developed nausea and vomiting. Patient notes that she recently had a sonogram which read that she may have possible uterus carcinoma, and is waiting for a referral to OBGYN for a biopsy. Patient denies any other associated symptoms at this time. Patient denies any other alleviating or exacerbating factors. Medication Reconciliation Allergies: Coded Allergies: celecoxib (Verified Allergy, Severe, TONGUE SWELLING, 01/26/25) Scheduled Apixaban (Eliquis), 10 MG PO BID Duloxetine HCl (Duloxetine HCl), 1 CAP PO BID, (Reported) Levothyroxine Sodium (Levothyroxine Sodium), 25 MCG PO DAILY@07 Pantoprazole Sodium (Pantoprazole Sodium), 40 MG PO DAILY Pregabalin (Lyrica), 1 CAP PO Q12H, (Reported) Pregabalin (Lyrica), 1 CAP PO Q8H Pregabalin (Lyrica), 1 CAP PO Q6H Scheduled PRN Baclofen (Baclofen), 10 MG PO TID PRN for pain Ibuprofen (Ibuprofen), 1 TAB PO BID PRN for pain, (Reported) Pregabalin (Pregabalin), 1 CAP PO TID PRN for pain, (Reported) Sennosides/Docusate Sodium (Senna-S Laxative Tablet), 1 TAB PO HS PRN for constipation Past Medical History Past Medical History: Hypertension, Pulmonary Embolism, UTI, Hypothyroidism, Chronic Pain, *CANCER*, Lung Cancer Past Surgical History: abdominal surgery, appendectomy, orthopedic surgeries, tonsillectomy Other Past Surgical History: prior lung biopsy, DNC Smoking Status: Former smoker Alcohol Use: None Drug Use: none Lives with: Alone Lives In: Home Review of Systems All Other Systems at this time: Reviewed and Negative ROS As stated in the HPI above, otherwise all other systems have been reviewed and negative. Physical Exam Vital Signs: RN Vital Signs have been reviewed: Yes, Temperature: 98.0, Source: Temporal, Heart Rate: 78, Respiratory Rate: 18, BP: 149/100, Pulse Oximetry: 93, Weight: 51.820 Physical Exam General: The patient is well developed, well nourished, nontoxic appearing and is in no acute distress. Skin: [place], warm and dry with no rashes. HEENT: Head was normocephalic and atraumatic. Eyes - pupils equal, round, reactive to light and accommodation. Extraocular movements were intact. Conjunctivae were nonicteric. The mouth and oropharynx were clear with moist mucous membranes. There were no pharyngeal exudates or erythema. Neck: Supple and nontender. There was no jugular venous distention, lymphadenopathy, thyromegaly or masses. Chest: Clear to auscultation bilaterally without wheezes, rales or rhonchi. No accessory muscle use. No dullness to percussion. Heart: Rate regular and rhythmic. S1, S2. No murmurs. Palpation of the chest wall was normal. No rubs or thrills. Abdomen: Diffuse tenderness to palpation. Otherwise soft and nondistended. Positive bowel sounds. No guarding or rebound. No hepatosplenomegaly or palpable masses. Back: CVA tenderness bilaterally, worse on the right than th eleft. Extremities: No cyanosis, clubbing or edema. The patient moves all extremities. Pulses were equal and symmetric. Neurologic: Poor mobility with gait. Tremor. A & O x4. Psychologic: The patient was oriented to person, place and time. Progress Progress Note 2259: Paged Hospitalist 2316: Case discussed with MACHINE PRESERVATIVE FILLER Dr. Tate who states biopsy is not necessary at this time. 2318: Case discussed with hospitalist who agrees to evaluate patient for admission. Results/Orders Reviewed/noted all lab results: Yes Results/Orders Orders - GLADIS TATE MD Ct Abdomen Pelvis (01/26/25 20:39) Culture Blood (01/26/25 22:56) Page Hospitalist (01/26/25 22:59) Fill Out Med Reconciliation (01/26/25 22:59) Completed Orders - GLADIS TATE MD Ct Abdomen Pelvis (01/26/25 20:39) Electrocardiogram (01/26/25 22:56) Levofloxacin-Levaquin 750mg/D5 (Levaquin (01/26/25 23:00) Ceftriaxone 2gm/D5w 50ml Bag (Rocephin 2 (01/26/25 23:00) Lacticsepsis (01/26/25 22:56) Fosfomycin Tromethamine Packet (Monurol (01/26/25 23:10) Hydrocodone/Apap 10/325 ([place] 10/325mg (01/26/25 23:20) Vital Signs 01/26/25 17:51 Temp 98.0 Pulse 78 Resp 18 B/P (MAP) 149/100 Pulse Ox 93 Laboratory Tests Test 01/26/25 18:13 01/26/25 21:40 01/26/25 23:06 White Blood Count 5.9 Red Blood Count 4.40 Hemoglobin 13.2 Hematocrit 39.7 Mean Corpuscular Volume 90.1 Mean Corpuscular Hemoglobin 30.1 Mean Corpuscular Hemoglobin Concent 33.4 Red Cell Distribution Width 14.7 H Platelet Count 169 Mean Platelet Volume 10.2 Neutrophils (%) (Auto) 56.9 Lymphocytes (%) (Auto) 30.1 Monocytes (%) (Auto) 8.0 Eosinophils (%) (Auto) 4.1 Basophils (%) (Auto) 0.9 Neutrophils # (Auto) 3.4 Lymphocytes # (Auto) 1.8 Monocytes # (Auto) 0.5 Eosinophils # (Auto) 0.2 Basophils # (Auto) 0.1 CBC Comment Sodium Level 144 Potassium Level 3.8 Chloride Level 106 Carbon Dioxide Level 28.4 Anion Gap 10 Blood Urea Nitrogen 10 Creatinine 0.62 Estimated GFR/1.73 m2 > 90 BUN/Creatinine Ratio 16.1 Glucose Level 81 Lactic Acid Level 1.0 0.7 Calcium Level 9.0 Magnesium Level 2.0 Albumin 3.8 Procalcitonin < 0.05 Chemistry Comments Urine Specimen Description Cln catch midstream Urine Color Yellow Urine Clarity Cloudy Urine pH 6.0 Urine Specific [place] >=1.030 Urine Protein 30 H Urine Glucose (UA) Negative Urine Ketones 15 H Urine Occult Blood Moderate H Urine Nitrite Negative Urine Bilirubin Moderate Urine Urobilinogen 0.2 Urine Leukocyte Esterase Moderate H Urine RBC 0-2 Urine WBC 50-100 H Urine WBC Clumps Few Urine Squamous Epithelial Cells Few Urine Bacteria 2+ Urine Mucus Few Urine Culture Indicated Indicated Volume Urine Centrifuged 10 ml Urine Comment Microbiology Date/Time Source Procedure Growth Status 01/26/25 22:34 Urine Clean Catch Midstream Urine Culture - Preliminary Culture received. Resulted 01/26/25 18:17 Blood Arm Left Blood Culture - Preliminary NEGATIVE (LESS THAN 24 HOURS) Resulted Re-Evaluation Re-Evaluation : Re-Evaluation: Improved Progress Patient was seen and examined. Patient is given reassurance. Patient was having pretty significant abdominal pain as well as suprapubic discomfort with urinary complaints. Patient's specific gravity was 1.030 as well as some moderate blood with moderate leukocyte esterase. Urine RBCs 0-2 WBCs 50-100 with WBC clumps. 3+ bacteria. Chemistry shows normal laboratory findings with the lactic acid of one and procalcitonin negative as well. Patient's magnesium is 2.1 potassium is 3.8. Patient's CBC is also within normal limits without elevated white count or left shift. Patient clearly has a urinary tract infect ion however she also has CVA tenderness as well and report of fevers and chills. Patient is has a history of recurrent UTIs it was negative but prior to receiving with sample patient was started on fosfomycin as well as Rocephin and levofloxacin. Patient was then admitted to the hospitalist service for further workup and care. Continuous admissions coordinator interpretation shows normal sinus rhythm heart rate 80s, no ectopy, normal, my interpretation. Pulse oximetry monitor interpretation shows normal oxygenation 93% room air, normal, my interpretation. EKG/XRAY/CT/US/VASC/MRI EKG : Intepreting Monitor?: Yes Additional Comment 2869: EDMD Dr. Tate interpreted the EKG to show normal sinus rhythm at a rate of 70bpm, poor R wave progression, nonspecific ST changes. QTc of 464. CT : Interpreted By: both With Contrast?: No Impression [facility] [address] [facility] [id number] CAT SCAN Patient: BETZAIDA JC Medical Record: [id number] [facility] : 1960, Age: 65 Sex: Female Location: ER Patient Status: REG ER Service Date/Time: 01/26/252038 Ordering Physician: GLADIS TATE MD Exam: CT ABDOMEN PELVIS Procedure: CT CT ABDOMEN PELVIS [facility] Study Date and Requested Time: 01/26/2025 08:39 PM History: ABD PAIN Comparison: ULTRASOUND OF ABDOMEN on DOS: 11/09/20 Dose: CTDI: 7.22 mGy DLP: 135.33 mGycm Technique: Multiplanar images obtained through the abdomen and pelvis without contrast Findings: Bibasilar atelectasis. Partially visualized heart is unremarkable. Status post cholecystectomy. Calcified granulomas within the liver. Mild hepa tomegaly. Otherwise, liver, spleen, pancreas and adrenal glands unremarkable. Kidneys, ureters and urinary bladder unremarkable. Kidneys, ureters, and urinary bladder are within normal limits. 2.9 x 3 cm cystic area over the uterine fundus. Bilateral ovaries are unremarkable. Distal esophagus is unremarkable. Stomach is unremarkable. Small bowel grossly unremarkable with no evidence of obstruction. Appendix not definitely visualized. Small to moderate amount of fecal material within the colon. Scattered colonic diverticulosis without diverticulitis. No evidence of intraperitoneal free air or free fluid. Moderate to heavy atherosclerotic calcification of the aorta with mild atherosclerotic calcification of bilateral iliacs. No significant lymphadenopathy. Mild body wall edema. No evidence of acute osseous abnormalities. Diffuse demineralization. No evidence of intraperitoneal free fluid, or free air. No evidence of aortic aneurysm. No significant lymphadenopathy. The soft tissues are unremarkable. No destructive osseous lesions are noted. Impression: Scattered colonic diverticulosis without diverticulitis. Small to moderate amount of fecal material within the colon. 2.9 x 3 cm cystic area over the uterine fundus. Pelvic ultrasound is recommended for further evaluation. Mild body wall edema. Electronically Signed by:SPARKLE CARROLL DO Date & Time: 01/26/252102 Dictated by: SPARKLE CARROLL DO Dictation date and time: 01/26/252045 Primary Care Provider: NO PRIMARY CARE PROVIDER cc: GLADIS TATE MD ~ EDMD DR TATE REVIEWED IMAGING AND AGREES WITH ABOVE FINDINGS Medical Decision Making Additional info obtained from: old records Urinary Diff Dx:Considerations: Include: Bowel obstruction, Cholelithiasis, Choleangitis, DJD, Ectopic , Hepatitis, Musculoskeletal pain, Ovarian torsion, Pancreatitis, PID, Pyelonephritis, Renal failure, Urinary retention, UTI, Other Departure Time of Disposition: 22:59 Disposition: ADMITTED INPATIENT Admitted to Inpatient Unit: yes, to hospitalist Impression: Primary Impression: Pyelonephritis Additional Impressions: Abdominal pain Qualified Codes: R10.84 - Generalized abdominal pain Vomiting Qualified Codes: R11.2 - Nausea with vomiting, unspecified Condition: Guarded Referrals: NO PRIMARY CARE PROVIDER (PCP) Education Educated: Patient Educated regarding: diagnosis Signature Scribe Signature: Scribed for Gladis Tate MD by Maia Wright. 01/26/25 22:59 Attestation: The note accurately reflects work and decisions made by me.Gladis Tate MD 01/26/25 22:55 GLADIS TATE MD Jan 26, 2025 22:55
--- NOTE | 2025-01-26 23:26 | ELECTROCARDIOGRAPH REPORT ---
[facility] Test Date: 2025-01-26 Test Time: 23:25:16 Pat Name: BETZAIDA JC Department: [facility]- Patient ID: [facility]-[id number] Room: Gender: F [employer]: : 1960 Requested By: GLADIS WHITEHEAD Order Number: [id number] Reading MD: Measurements Intervals [place] Rate: 70 P: 108 IN: 32 QRS: 75 QRSD: 102 T: 38 QT: 430 QTc: 464 Interpretive Statements Unknown rhythm, irregular rate Short IN interval Consider right atrial enlargement Artifact in lead(s) I,II,III,aVR,aVL,aVF Please click the below link to view image of tracing.
[2025-01-27] MEDS: HYDROcodone/acetaminophen 10/325mg tab PO ONE (00:03)
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
[2025-01-27] MEDS: CefTRIAXone 2gm/D5W 50ml BAG 50 ML IV ONE (00:18)
[2025-01-27] MEDS ORDERED: magnesium sulf-water 4G/100mL 100 ML IV PRN (00:20)
[2025-01-27] MEDS ORDERED: magnesium hydroxide 30ml (MOM) UD suspension PO PRN (00:20)
[2025-01-27] MEDS ORDERED: magnesium Cl slow-release 64mg tablet PO PRN (00:20)
[2025-01-27] MEDS ORDERED: mag hydrox/Alum hydrox/simeth 30ml oral suspension PO PRN (00:20)
[2025-01-27] MEDS ORDERED: potassium Cl 40MEQ/1/2NS 520ml 520 ML IV PRN (00:20)
[2025-01-27] MEDS ORDERED: magnesium sulf-water 2g/50mL 50 ML IV PRN (00:20)
[2025-01-27] MEDS ORDERED: potassium Cl 20 mEq SR tablet PO PRN (00:20)
[2025-01-27] MEDS ORDERED: ondansetron/PF 4mg/2ml inj IV PRN (00:20)
[2025-01-27] MEDS ORDERED: HYDROcodone/acetaminophen 5mg/325mg tablet PO PRN (00:20)
[2025-01-27] MEDS: levoFLOXACIN-Levaquin 750MG/D5 150 ML IV ONE (01:00)
[2025-01-27] MEDS: normal saline 1000ml 1,000 ML IV SCH (01:02)
[2025-01-27] MEDS: FOSFOMYCIN TROMETHAMINE 3 GM PACKET PO ONE (02:05)
[2025-01-27] MEDS ORDERED: PREG150C47 PO (02:15)
[2025-01-27] MEDS ORDERED: IBUP600T52 PO (02:15)
[2025-01-27] MEDS ORDERED: DULO30CA52 PO (02:15)
[2025-01-27 02:57] LABS: PRO BRAIN NATRIURETIC PEPTIDE 174.0 PG/ML (0-125)
[2025-01-27] MEDS: docusate sod 100mg capsule PO SCH (08:00)
[2025-01-27] MEDS: K and/or MAG REPLACEMENT MC SCH (08:00)
[2025-01-27] MEDS: metroNIDAZOLE-Flagyl 500mg/NS 100 ML IV SCH (09:09)
[2025-01-27] MEDS: enoxaparin 40mg/0.4ml syringe SUBCUT SCH (09:10)
[2025-01-27] MEDS: potassium Cl 20 mEq SR tablet PO PRN (09:56)
[2025-01-27 10:00] VITALS: BP 114/62; PULSE 59; RESP 18; TEMP 97; O2SAT 98
[2025-01-27] MEDS ORDERED: BACL20TA PO (10:16)
[2025-01-27] MEDS: HYDROcodone/acetaminophen 10/325mg tab PO PRN (10:32)
[2025-01-27 11:05] VITALS: RESP 16; O2SAT 97
--- NOTE | 2025-01-27 11:17 | RADIOLOGY REPORT ---
Technique: Real-time ultrasound images through the pelvis using a transabdominal transducer. For bett er evaluation of the ovaries and endometrial stripe, an endovaginal transducer was used. Indication: Ultrasound pelvis for evaluation of uterine mass Comparison: 01/26/2025 Findings: The uterus measures 5.3 cm. Endometrial stripe is not well characterized. There is a anechoic lesio n/ collection within the endometrium complex measuring 1.8 x 3.1 cm without internal vascularity. Po ssible internal echoes. Nabothian cysts are present. Small amount of fluid within the endocervical ca nal. Right ovary nonvisualized Left ovary measures 2 x 1.1 x 1.3 cm. Normal flow on color doppler images. No focal masses are ident ified. There is no significant free fluid in the pelvis. Impression: Large anechoic lesion/ fluid collection within the endometrial complex measuring 1.8 x 3.1 cm. Recom mend metal buildings assembler consultation to further evaluate 2 exclude any type of endometrial/uterine / cervical neopla sm. Right ovary nonvisualized.
--- NOTE | 2025-01-27 15:15 | PROGRESS NOTE ---
Daily Progress Note Providers to CC ~ Antibiotic Timeout Antibiotic Ordered?: Yes Subjective Patient states she continues to have vaginal bleeding. Objective Vital Signs Date Time Temp Pulse Resp B/P (MAP) Pulse Ox O2 Delivery O2 Flow Rate FiO2 01/27/25 11:40 18 01/27/25 11:05 97 Room Air 01/27/25 10:00 97.0 59 114/62 (79) 01/27/25 03:23 0 Result Diagram: 01/26/25 1813 01/27/25 0224 Awake cooperative in no acute distress HEENT normocephalic atraumatic extraocular movements are intact, sclerae is anicteric Neck supple, no JVD Chest: Clear to auscultation, no wheezes crackles rhonchi Heart: Regular rate rhythm, no murmur or gallop rub Abdomen is soft nontender no organomegaly Extremities no cyanosis clubbing or edema Neuro exam nonfocal Other Results Medications reviewed Problem\Assessment\Plan 65 years old female with history of lung cancer, right upper lobectomy, PE, presented to the ER for evaluation of vaginal discharge and burning on urination. Patient had an appointment with the PCP and was advised to come to the emergency room 1. UTI: Continue IV Rocephin 2. Endometrial complex fluid collection 1.8 x 3.1 cm: Needs director of officiating consultation. Confirmed on Uterine US . RN to reach out to piano case maker to assist with getting a director of officiating consult. 3. Vaginal bleeding: Monitor H&H. Transfuse for hemoglobin less than seven pending director of officiating consultation 4. History of depression: Continue duloxetine 30 mg p.o. b.i.d. 5. Hypokalemia Replace per protocol. 6.Code status: Full code. Date of Service: Jan 27, 2025 Billing Provider: TEETEE LAWTON MD Common Visit Codes: [id number] INP/OBS CARE(HIGH) TEETEE LAWTON MD Jan 27, 2025 15:15
[2025-01-27 18:00] VITALS: BP 128/69; PULSE 56; RESP 14; TEMP 98.1; O2SAT 93
[2025-01-27 20:00] VITALS: RESP 20; O2SAT 95
[2025-01-27] MEDS: duloxetine 30mg CAPSULE.DR PO SCH (20:24)
[2025-01-27 22:00] VITALS: BP 124/66; PULSE 55; RESP 20; TEMP 98; O2SAT 95
[2025-01-27] MEDS: CefTRIAXone/D5W-Rocephin 1gm 50 ML IV SCH (23:15)
[2025-01-28 05:29] LABS: MEAN PLATELET VOLUME 10.4 FL (7.4-10.4); RED CELL DISTRIBUTION WIDTH 14.6 % (11.5-14.5)
[2025-01-28 06:00] VITALS: BP 151/70; PULSE 55; RESP 18; TEMP 97.8; O2SAT 94
[2025-01-28 09:30] VITALS: RESP 16
[2025-01-28 10:00] VITALS: BP 127/73; PULSE 63; RESP 16; TEMP 97.4; O2SAT 95
[2025-01-28 12:47] LABS: CREATININE 0.60 MG/DL (0.40-0.90); TOTAL CARBON DIOXIDE 25.6 MMOL/L (24-32); eCRCL 77 ML/MIN; eGFR > 90 ML/MIN
[2025-01-28 15:36] VITALS: PULSE 53; RESP 18; O2SAT 94
--- NOTE | 2025-01-28 17:33 | PROGRESS NOTE ---
Daily Progress Note Providers to CC ~ Antibiotic Timeout Antibiotic Ordered?: Yes Subjective Patient states she has no further vaginal bleeding but continues to have dysuria Objective Vital Signs Date Time Temp Pulse Resp B/P (MAP) Pulse Ox O2 Delivery O2 Flow Rate FiO2 01/28/25 16:21 16 01/28/25 15:36 53 94 Room Air* 0 21 01/28/25 10:00 97.4 127/73 (91) Result Diagram: 01/28/25 0448 01/28/25 1520 Awake cooperative in no acute distress HEENT normocephalic atraumatic extraocular movements are intact, sclerae is anicteric Neck supple, no JVD Chest: Clear to auscultation, no wheezes crackles rhonchi Heart: Regular rate rhythm, no murmur or gallop rub Abdomen is soft tender to palpate, no organomegaly Extremities no cyanosis clubbing or edema Neuro exam nonfocal Other Results Medications reviewed Problem\Assessment\Plan 65 years old female with history of lung cancer, right upper lobectomy, PE, presented to the ER for evaluation of vaginal discharge and burning on urination. Patient had an appointment with the PCP and was advised to come to the emergency room 1. UTI: Continue IV Rocephin 2. Hypokalemia Replace per protocol. 3. Vaginal bleeding: Endometrial complex fluid collection 1.8 x 3.1 cm: Confirmed on Uterine US . Discussed with Dr. Tate, he recommends outpatient follow up with junior accountant as this could be endometrial cancer at her age however no emergent intervention is needed at this time since patient does not have any active bleeding . His group does not take patient's insurance and she will need to follow up with PCP for further assitance . Monitor H&H. Transfuse for hemoglobin less than seven pending junior accountant consultation 4. History of depression: Continue duloxetine 30 mg p.o. b.i.d. 5.Code status: Full code. Date of Service: Jan 28, 2025 Billing Provider: TEETEE LAWTON MD Common Visit Codes: [id number] INP/OBS CARE(HIGH) TEETEE LAWTON MD Jan 28, 2025 17:33
[2025-01-28 18:00] VITALS: BP 102/61; PULSE 55; RESP 14; TEMP 98.4; O2SAT 91
[2025-01-28] MEDS: phenazopyridine 100mg tablet PO SCH (20:07)
[2025-01-28 22:00] VITALS: BP 130/68; PULSE 58; RESP 16; TEMP 97.8; O2SAT 98
[2025-01-29] VITALS (7 sets, daily range): BP systolic 81–114; BP diastolic 41–62; PULSE 51–55; RESP 16–20; TEMP 97.5–98.8; O2SAT 92–100
[2025-01-29 06:00] LABS: MEAN PLATELET VOLUME 10.7 FL (7.4-10.4); RED CELL DISTRIBUTION WIDTH 15.0 % (11.5-14.5)
[2025-01-29 06:12] LABS: CREATININE 0.39 MG/DL (0.40-0.90); TOTAL CARBON DIOXIDE 26.7 MMOL/L (24-32); eCRCL 119 ML/MIN; eGFR > 90 ML/MIN
[2025-01-29] MEDS: normal saline 500ml IV soln 500 ML IV ONE (13:24)
[2025-01-29] MEDS ORDERED: CIPR-458 PO (15:48)
--- NOTE | 2025-01-29 16:08 | DISCHARGE SUMMARY ---
Discharge Summary Providers to CC ~ Discharge Summary Admission Diagnosis: UTI Hospital Course DATE OF ADMISSION: 01/27/2025 DATE OF DISCHARGE:01/29/2025 Discharge Diagnosis\Comment: Uterine mass UTI Vaginal bleed Hypokalemia Operations\Procedures: Abdomen/pelvic CT Pelvic ultrasound Consultants: None Complications: None Condition on DC: Stable New Medications: Ciprofloxacin HCl (Ciprofloxacin HCl) 500 Mg Tab 1 TAB PO BID, #14 TAB Continued Medications: Baclofen (Baclofen) 20 Mg Tablet 1 TAB PO TID Duloxetine HCl (Duloxetine HCl) 30 Mg Capsule.dr 1 CAP PO BID Ibuprofen (Ibuprofen) 600 Mg Tablet 1 TAB PO BID PRN for pain Pregabalin (Pregabalin) 150 Mg Capsule 1 CAP PO TID PRN for pain Sennosides/Docusate Sodium (Senna-S Laxative Tablet) 1 Each Tablet 1 TAB PO HS PRN for constipation for 10 Days, TAB 0 Refills hold for loose stools Discharge Summary: Reason for admission: 65 years old female presented to the ER for evaluation of vaginal discharge and burning on urination. Patient has a an appointment with the PCP who advised her to come to the emergency room. 1. UTI: Treated with IV Rocephin. Urine cultures growing [id number] Gram- negative rods. Final cultures are pending. Patient has responded well to it and has been discharged on p.o. Cipro. She is advised to see her PCP and follow up on the culture report. 2.Vaginal bleeding: Endometrial complex fluid collection 1.8 x 3.1 cm: Confirmed on Uterine US . Discussed with Dr. Tate, he recommends outpatient follow up with cotton candy maker as this could be endometrial cancer at her age however no rasta rgent intervention is needed at this time since patient does not have any active bleeding . His group does not take patient's insurance and she will need to follow up with PCP for further assitance . Patient does not have any further bleeding 3. Hypokalemia: Replace per protocol 4. History of depression: Continued on duloxetine 30 mg p.o. 5. History of lung cancer: Patient has had right upper lobectomy 6. Hypotension: Patient received baclofen and Lyrica and subsequently was noted to have a low blood pressure however during that patient was completely asymptomatic, ambulating without any assistance and without any complaints. She was given a bolus of 500 cc of normal saline and subsequently her blood pressure is improved 7. Acute blood loss anemia : Total Time Spent on D/C: > 30 Minutes TEETEE LAWTON MD Jan 29, 2025 16:07
[2025-01-29 16:39] LABS: MEAN PLATELET VOLUME 10.5 FL (7.4-10.4); RED CELL DISTRIBUTION WIDTH 14.9 % (11.5-14.5)
== END 2025-01-29 19:21 | disposition home or self-care (01) | DRG 463 ==
LOC: ER 17:19 → ED HOLD 23:30 → EDBEDREQ 01-27 09:35 → SUR 3N 01-27 10:05
PROVIDERS: ADMIT Internal Medicine Sleep Medicine; ATTEND Internal Medicine
DX: N39.0 Urinary tract infection, site not specified (principal); D62 Acute posthemorrhagic anemia; E03.9 Hypothyroidism, unspecified; G89.29 Other chronic pain; I10 Essential (primary) hypertension; E87.6 Hypokalemia; F32.A Depression, unspecified; I95.9 Hypotension, unspecified; N85.8 Other specified noninflammatory disorders of uterus; M54.12 Radiculopathy, cervical region; Z87.891 Personal history of nicotine dependence; Z86.711 Personal history of pulmonary embolism; Z87.440 Personal history of urinary (tract) infections; Z85.118 Personal history of other malignant neoplasm of bronchus and lung; Z88.8 Allergy status to other drugs, medicaments and biological substances; Z79.899 Other long term (current) drug therapy; Z90.49 Acquired absence of other specified parts of digestive tract
CPT/HCPCS: 36415; 74176; 76830; 76856; 80048; 81001; 83605; 83735; 83880; 84132; 84145; 85025; 87040; 87077; 87081; 87088; 87186; 93005; 93976; 94760; 99285; A4615; G0378; J0696; J1650; J1956; J2270; J3490; J7030; J7040; Q9967